=== PATIENT | female | born 1960 | race Caucasian/White ===

== ENCOUNTER → 2016-11-28 | Outpatient (CLI) | payer MEDICARE, BC ==
--- NOTE | 2016-11-28 15:52 | US ---
EXAMINATION TYPE: US bladder DATE OF EXAM: 11/28/2016 COMPARISON: NONE CLINICAL HISTORY: R33.9 Retention Of Urine. Urinary frequency, retention of urine EXAM MEASUREMENTS: Post Void Residual Volume: 34.5 mL The prevoid urinary bladder has circumferentially smooth non thickened smith. Color Doppler performed to assess ureteral jets. Bilateral Jets seen: Yes Normal Post Void Residual (less than 50ml): Yes, 34.5 mm IMPRESSION: Unremarkable sonographic appearance of the urinary bladder with no abnormal post void re sidual.
== END | disposition home or self-care (01) ==
LOC: RADUSWWP 15:19
PROVIDERS: ATTEND Internal Medicine
DX: R33.9 Retention of urine, unspecified (principal)
CPT/HCPCS: 76857

== ENCOUNTER → 2017-05-03 | Outpatient (CLI) | payer MEDICARE, BC ==
--- NOTE | 2017-05-03 11:17 | US ---
EXAMINATION TYPE: US thyroid st tissue head/neck DATE OF EXAM: 05/03/2017 COMPARISON: NONE CLINICAL HISTORY: E05.90 Subclinical hyperthyroidism. Abn labs GLAND SIZE: Right Lobe: 4.5 x 1.5 x 1.2 cm Overall Parenchyma: heterogenous Left Lobe: 3.9 x 1.6 x 1.4 cm Overall Parenchyma: heterogeneous Isthmus Thickness: 0.2 cm NODULES RIGHT: # of nodules measured on right: 0 LEFT: # of nodules measured on left: 0 ISTHMUS: # of nodules measured in the isthmus: 0 Bilateral neck scanned, no evidence of lymphadenopathy. No prominent nodules or lesions seen. IMPRESSION: No evidence of thyroid gland enlargement, hypervascularity or discrete thyroid nodule. Unremarkable e xam.
--- NOTE | 2017-05-04 10:04 | NM ---
EXAMINATION TYPE: NM thyroid image w uptake DATE OF EXAM: 05/04/2017 COMPARISON: Ultrasound 05/03/2017 HISTORY: 57-year-old female with thyroid swelling, heat intolerance, increased weight, extreme fatigu e, tremors. Subclinical hyperthyroidism. TECHNIQUE: Thyroid iodine uptake is calculated and images performed after the oral administration of 332 uCi 1-123 Capsule. FINDINGS: There is normal distribution of activity throughout the gland. The 4 hour iodine uptake is calculated at 5.1% (normal range 8-14%). The 24-hour iodine uptake is calculated at 13.3% (normal range 15-35%). IMPRESSION: 1. Normal thyroid scan. 2. Uptake measurements are low suggesting some degree of hypothyroidism at this time. Clinical and la boratory correlation recommended.
== END ==
LOC: RADUSMAIN 08:00
PROVIDERS: ATTEND Internal Medicine Endocrinology, Diabetes & Metabolism
DX: E05.90 Thyrotoxicosis, unspecified without thyrotoxic crisis or storm (principal)
CPT/HCPCS: 76536; 78014; A9516

== ENCOUNTER → 2017-05-12 | Outpatient (CLI) | payer MEDICARE, BC ==
[2017-05-12 16:07] LABS: T4, Free (Free Thyroxine) 0.9 ng/dL (0.78-2.19)
== END | disposition home or self-care (01) ==
LOC: LABWHC1 14:19
PROVIDERS: ATTEND Internal Medicine Endocrinology, Diabetes & Metabolism
DX: E05.90 Thyrotoxicosis, unspecified without thyrotoxic crisis or storm (principal)
CPT/HCPCS: 36415; 84439; 84443; 84445; 84480

== ENCOUNTER → 2017-11-14 | Outpatient (CLI) | payer MEDICARE, BC ==
[2017-11-14 18:13] LABS: T4, Free (Free Thyroxine) 0.86 ng/dL (0.78-2.19)
[2017-11-15 00:58] LABS: Thyroid Peroxidase Antibodies 101.9 U/mL (0.0-60.0)
== END | disposition home or self-care (01) ==
LOC: LABWHC1 17:03
PROVIDERS: ATTEND Internal Medicine Endocrinology, Diabetes & Metabolism
DX: E05.90 Thyrotoxicosis, unspecified without thyrotoxic crisis or storm (principal)
CPT/HCPCS: 36415; 84439; 84443; 84445; 84480; 86376

== ENCOUNTER → 2017-11-21 | Outpatient (CLI) | payer MEDICARE, BC ==
--- NOTE | 2017-11-22 09:24 | MM ---
Reason for exam: clinical finding. Last mammogram was performed 2 years and 2 months ago. History: Patient is postmenopausal. Family history of breast cancer in sister at age 52, breast cancer in cousin, and breast cancer in sister at age 58. Indicated problem(s): pain in both breasts. Physical Findings: Nurse did not find any significant physical abnormalities on exam. MG 3D Diag Mammo W/Cad WILLIAM Bilateral CC and MLO view(s) were taken. Prior study comparison: September 18, 2015, bilateral MG 3d screening mammo w/cad. February 26, 2014, bilateral MG screening mammo w CAD. Finding: There is a probably benign appearing equal, spiculated, architectural distortion located 7 cm from the nipple in the upper quadrant, middle position of the left breast on MLO view, not on tomosynthesis images, likely summation. New finding since September 18, 2015 and February 26, 2014. These results were verbally communicated with the patient and result sheet given to the patient on 11/21/17. ASSESSMENT: Probably benign, BI-RAD 3 RECOMMENDATION: Follow-up diagnostic mammogram of the left breast in 6 months. If lesion persists on supplemental views, image directed ultrasound is recommended. [facility] will attempt to contact patient to return for supplemental views and ultrasound if indicated.
== END | disposition home or self-care (01) ==
LOC: RADMAMWWP 12:58
PROVIDERS: ATTEND Internal Medicine
DX: N63.22 Unspecified lump in the left breast, upper inner quadrant (principal)
CPT/HCPCS: 77066; G0279; 77062

== ENCOUNTER → 2017-11-30 | Outpatient (CLI) | payer MEDICARE, BC ==
[2017-11-30 15:03] LABS: T4, Free (Free Thyroxine) 0.84 ng/dL (0.78-2.19)
[2017-11-30 20:43] LABS: ACTH 25.6 pg/mL (0.00-45.99)
== END | disposition home or self-care (01) ==
LOC: LABWHC1 14:16
PROVIDERS: ATTEND Internal Medicine Endocrinology, Diabetes & Metabolism
DX: E06.3 Autoimmune thyroiditis (principal); R53.83 Other fatigue
CPT/HCPCS: 36415; 82024; 82533; 84146; 84439; 84443

== ENCOUNTER → 2018-01-19 | Outpatient (CLI) | payer MEDICARE, BC ==
[2018-01-19 09:39] VITALS: BMI 31.4
--- NOTE | 2018-01-19 10:34 | P.GSHP ---
History of Present Illness H&P Date: 01/19/18 The patient is a 57-year-old white female who presents today for breast evaluation. She has a history of chronic breast discomfort. The discomfort is described as soreness on the lateral breast and chest wall including the ribs. This has been persistent for several years. She is postmenopausal. There is no cyclic nature to the discomfort. She does have a strong history of cancer in her family. She is concerned and wants to be sure that she doesn't need to do anything more for breast surveillance than what she is currently doing. She did have a bilateral 3-D breast mammogram in November 2017. The findings on this revealed a benign appearing equal speculated architectural distortion 7 cm from the nipple in the upper quadrant middle position of the left breast MLO view not until most synthesis images felt to be summation. This was felt to be probably benign and follow-up left breast mammogram in 6 months was recommended. She herself does not feel any discrete masses in her breasts. She has no history of breast trauma or infections. No nipple discharge of concern. The patient drinks minimal coffee or tea. She only has 1-2 cups per month. She is a former smoker she stopped smoking in 2000. She does not drink pop, she eats chocolate several times a week. Family History: 1. father: from lung cancer a smoker 2. mother: cerebral bleed 3. 2 sisters with breast cancer: one in 40's and one in 50's 4. grandmother maternal: parotid cancer 5. paternal aunt: colon cancer 6. second cousin in twenties breast cancer Hormonal History: menarche: 15 : 1, at 29, 1 child, breast fed: no menopause: 49 BCP: 5 years hormones: none Past Surgical History: 1. 2. gallbladder 3. C4 to C6 corpectomy The operation was done secondary to an injury lifting a patient, following the procedure postoperative she had shortness of breath and severe pain in the head and neck area. She is felt to have shortness of breath due to her muscles and not her lungs, as per pulmonary consultation as per the patient, she is oxygen dependent. She also has central apnea. Past Medical History: 1. Suppressive causing oxygen dependence believed to be secondary to chest wall muscles as well as some possible central apnea 2. Cervical thoracic and lumbar degenerative disc disease 3. arthritis 4. high cholesterol 5. Hoshimotos disease 6. urinary incontinence Social History smoke:1 ppd/20 years stopped 2000 Alcohol: Negative Drugs: Negative - Constitutional Comment: night sweats - EENT Comment: headaches every day patient is on [place], and morphine Eyes: bilateral blurred vision, denies pain Ears: bilateral: decreased hearing, tinnitus Ears, nose, mouth and throat: Reports headache, Denies sore throat - Breasts Breasts: bilateral: as per HPI - Cardiovascular Cardiovascular: Reports chest pain, Reports high blood pressure, Reports shortness of breath - Respiratory Respiratory: Reports home oxygen - Gastrointestinal Gastrointestinal: Reports constipation - Genitourinary (Female) Genitourinary: Reports stress incontinence, Reports urge incontinence, Reports urgency - Menstruation Menstruation: Reports postmenopausal - Musculoskeletal Comment: Multiple degenerative disks Musculoskeletal: Reports as per HPI - Integumentary Integumentary: Reports pruritus, Denies rash - Neurological Comment: numbess in hands and feet and on the right side of her body weakness in her arms Neurological: Reports numbness, Reports weakness - Psychiatric Psychiatric: Reports depression - Endocrine Comment: hypothyroidism Endocrine: Reports fatigue, Reports weight change - Hematologic/Lymphatic Comment: none - Allergic/Immunologic Allergic/Immunologic: Reports as per HPI, Reports seasonal allergies Past Medical History Past Medical History: No Reported History, GERD/Reflux, Hyperlipidemia, Hypertension, Musculoskeletal Disorder Additional Past Medical History / Comment(s): Cervical disc disease status post C4-C5 and C5-C6 corpectomy decompression and fusion that was done [address] Rodriges. Central sleep apnea on Servo ventilation History of Any Multi-Drug Resistant Organisms: None Reported Past Surgical History: Section, Cholecystectomy Additional Past Surgical History / Comment(s): Cervical decompression/ stabilization. cor pectomy c4-c6 with donor bone plates and screws Past Anesthesia/Blood Transfusion Reactions: No Reported Reaction Past Psychological History: No Psychological Hx Reported Smoking Status: Former smoker Past Alcohol Use History: None Reported Additional Past Alcohol Use History / Comment(s): Patient was smoker half a pack per day and quit in 2000. She denies any alcohol use. She denies any medical marijuana, marijuana, street drug use. Past Drug Use History: None Reported - Past Family History Father Additional Family Medical History / Comment(s): Father at age 60 from lung cancer. Mother Additional Family Medical History / Comment(s): Mother at age 66 from cerebral aneurysm. Sister(s) Family Medical History: Cancer Additional Family Medical History / Comment(s): Patient has 2 sisters and one has had breast cancer and one has had peritoneal cancer at age 14. She has one brother with no major medical problems. Patient has one daughter with no major medical problems. Medications and Allergies Home Medications Medication Instructions Recorded Confirmed Type Gabapentin [Neurontin] 800 mg PO TID 04/07/14 01/19/18 History Hydrocodone/Acetaminophen [[place] 1 tab PO BID PRN 04/07/14 01/19/18 History 10-325] Armodafinil [Nuvigil] 150 mg PO QAM 08/09/15 01/19/18 History Cholecalciferol [Vitamin D3] 5,000 unit PO DAILY 08/09/15 01/19/18 History Morphine Sulfate ER [Ms Contin] 30 mg PO HS 08/09/15 01/19/18 History Verapamil HCl [Verapamil ER] 180 mg PO HS 09/10/15 01/19/18 History Ferrous Sulfate [Iron (65 MG 65 mg PO DAILY 10/22/15 01/19/18 History Elemental)] Venlafaxine HCl ER [Effexor XR] 150 mg PO HS #30 cap.er.24h 11/06/15 01/19/18 Rx Sucralfate [Carafate] 1 tab PO DAILY 01/19/18 01/19/18 History Allergies Allergy/AdvReac Type Severity Reaction Status Date / Time alprazolam [From Xanax] Allergy INSOMNIA Verified 10/22/15 21:21 hydromorphone HCl Allergy Nausea Verified 10/22/15 21:21 [From Dilaudid] sumatriptan [From Imitrex] Allergy Chest Pain Verified 10/22/15 21:21 sumatriptan succinate Allergy Chest Pain Verified 10/22/15 21:21 [From Imitrex] tapentadol HCl [From Nucynta] Allergy Chest Pain Verified 10/22/15 21:21 atenolol AdvReac Unknown Verified 10/22/15 21:21 Surgical - Exam BMI 31.5 The pressure 119/85 Pulse ox 96 Pulse 96 temp: 98.5 - General obese - Eyes normal ocular movement right: erythema - ENT no hearing loss, no congestion - Neck no masses, trachea midline - Respiratory patient on oxygen, on a auto-servo ventilator at night normal respiratory effort, clear to auscultation - Cardiovascular Rhythm: regular Heart Sounds: normal: S1, S2 - Abdomen Abdomen: soft - Integumentary no abnormal pigmentation - Neurologic no disoriented, no combative - Musculoskeletal normal gait, normal posture - Psychiatric oriented to time, oriented to person, oriented to place, speech is normal, memory intact Breast exam: right: multi-positional exam no dominant masses or nodules of concern, dense breast tissue, right breast is slightly smaller than the left breast, nipple is inverted It has been like this for a long period of time as per the patient Right axilla: No adenopathy of concern Left breast: Left breast is slightly larger than the right breast, dense breast tissue, fibrocystic changes, no dominant mass or nodule of concern, nipple is slightly inverted which is more recent as per the patient Left axilla: No adenopathy of concern Results Bilateral 3-D mammogram from November 2017 report reviewed Assessment and Plan Assessment: Impression: 1. Strong family history of breast cancer 2. Mastodynia 3. Dense breast tissue abnormal mammogram left breast 4. Multiple medical problems related to degenerative disc disease 5. Oxygen dependence etiology may be central apnea as well as chest wall weakness 6. Former smoker 7. Urinary incontinence 8. Headaches 9. Arthritis 10. 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 Genetic counseling secondary to strong family history of cancer 2. Ultrasound left breast with attention to the upper outer quadrant area with the tissue is very dense 3. Abstain from theophylline caffeine and any exposure to nicotine we have discussed possibility of primrose oil and she'll be given a booklet regarding breast pain 4. Medical management of medical problems 5. follow up after the ultra sound is completed 6. We will attempt to get bilateral breast MRI secondary to very dense breast tissue as well as strong family history We've had a discussion regarding fibrocystic breast changes and the patient is going to try to stay way from chocolate at this time she is being given a booklet regarding breast pain as well. cc: Dr. Gomes
== END | disposition home or self-care (01) ==
LOC: WWCWWP 09:12
PROVIDERS: ATTEND Surgery
DX: Z53.9 Procedure and treatment not carried out, unspecified reason (principal)

== ENCOUNTER → 2018-02-23 | Outpatient (CLI) | payer MEDICARE, BC ==
--- NOTE | 2018-02-26 13:11 | USB ---
Reason for exam: clinical finding. History: Patient is postmenopausal. Family history of breast cancer in sister at age 52, breast cancer in cousin, and breast cancer in sister at age 58. Physical Findings: Nurse Summary: Patient complains of bilateral breast pain x 1 year, left breast nipple inverted (nurse mj). US Breast LT Left complete breast ultrasound includes all four quadrants, the retroareolar region and axilla. Finding demonstrates no cystic or solid lesion seen. These results were verbally communicated with the patient and result sheet given to the patient on 02/23/18. ASSESSMENT: Negative, BI-RAD 1 RECOMMENDATION: Follow-up diagnostic mammogram of the left breast in 3 months. Manage on a clinical basis with regard to patient reported pain.
== END ==
LOC: RADUSWWP 14:51
PROVIDERS: ATTEND Surgery
DX: R92.8 Other abnormal and inconclusive findings on diagnostic imaging of breast (principal)

== ENCOUNTER → 2018-03-23 | Outpatient (CLI) | payer MEDICARE, BC ==
[2018-03-23 14:02] VITALS: BP 116/64; PULSE 90; RESP 18; TEMP 98.2; BMI 31.4
--- NOTE | 2018-03-23 14:44 | P.PN ---
Subjective Progress Note Date: 03/23/18 Principal diagnosis: Strong family history of breast cancer Joy is a 58-year-old white female who has a very strong family history of breast cancer. She had 2 sisters with breast cancer and a second cousin who developed breast cancer in her 20s. The patient had a bilateral mammogram in November after which it was recommended that she have a repeat left breast mammogram in 6 months time. Joy wanted to be sure that everything was being done for surveillance that was necessary. She has not yet seen a genetic counselor although that was suggested and she states that this time that she is making arrangements to do so. She did have an ultrasound of the left breast performed on . This revealed no cystic or solid lesions of concern. This was felt to be a negative BIRADS 1 diagnostic mammogram of the left breast in 3 months was recommended. Additionally she had a bilateral breast MRI performed on 1119. This revealed negative study of the right breast and negative study of the left breast. The patient has decreased her caffeine and chocolate intake. She states her breasts are less tender at this time. She has no complaints of any new masses or lesions in her breast. Objective - Vital Signs Vital signs: Vital Signs Temp 98.2 F 03/23/18 13:50 Pulse 90 03/23/18 13:50 Resp 18 03/23/18 13:50 BP 116/64 03/23/18 13:50 Pulse Ox 96 03/23/18 13:50 Intake & Output 03/22/18 03/23/18 03/23/18 18:59 06:59 18:59 Weight 78.018 kg - Exam BMI 31.5 - Constitutional General appearance: Present: average body habitus - EENT Eyes: Present: EOMI ENT: Present: hearing grossly normal - Neck Neck: Present: normal ROM - Respiratory Details: Oxygen dependent secondary to central apnea and muscles of the chest wall - Cardiovascular Rhythm: regular Heart sounds: normal: S1, S2 - Gastrointestinal General gastrointestinal: Present: soft - Integumentary Integumentary: Present: normal turgor - Musculoskeletal Musculoskeletal: Present: gait normal - Psychiatric Psychiatric: Present: A&O x's 3, appropriate affect, intact judgment & insight Assessment and Plan Assessment: Impression: 1. stable MRI of bilateral breast 2. left breast mammogram in 2018 3. central apnea/O2 dependance 4. neurogenic bladder 5. back pain/herniated disc 6. family history of cancer Plan: 1. left breast mammogram in 2018 with follow up at that time 2. medical management of medical conditions 3. genetic counselling cc: Mireya
== END ==
LOC: WWCWWP 13:45
PROVIDERS: ATTEND Surgery
DX: Z53.9 Procedure and treatment not carried out, unspecified reason (principal)

== ENCOUNTER → 2018-04-12 | Outpatient (CLI) | payer MEDICARE, BC ==
[2018-04-13 03:23] LABS: T4, Free (Free Thyroxine) 1.2 ng/dL (0.80-1.80)
== END ==
LOC: LABWHC1 17:04
PROVIDERS: ATTEND Internal Medicine Endocrinology, Diabetes & Metabolism
DX: E06.3 Autoimmune thyroiditis (principal)
CPT/HCPCS: 36415; 84439; 84443

== ENCOUNTER → 2018-06-11 | Outpatient (CLI) | payer MEDICARE, BC ==
--- NOTE | 2018-06-11 09:40 | MM ---
Reason for exam: follow-up at short interval from prior study. Last mammogram was performed 7 months ago. History: Patient is postmenopausal. Family history of breast cancer in sister at age 49, breast cancer in paternal cousin at age 21, and breast cancer in sister at age 60. Physical Findings: Nurse did not find any significant physical abnormalities on exam. MG 3D Diag Mammo W/Cad LT CC, MLO, and ML view(s) were taken of the left breast. Prior study comparison: November 21, 2017, bilateral MG 3d diag mammo w/cad WILLIAM. September 18, 2015, bilateral MG 3d screening mammo w/cad. The breast tissue is heterogeneously dense. This may lower the sensitivity of mammography. No significant new findings when compared with previous films. These results were verbally communicated with the patient and result sheet given to the patient on 06/11/18. ASSESSMENT: Benign, BI-RAD 2 RECOMMENDATION: Routine screening mammogram of both breasts in 6 months. Back on schedule.
== END | disposition home or self-care (01) ==
LOC: RADMAMWWP 08:40
PROVIDERS: ATTEND Surgery
DX: R92.8 Other abnormal and inconclusive findings on diagnostic imaging of breast (principal)
CPT/HCPCS: 77065; G0279; 77061

== ENCOUNTER → 2018-06-14 | Outpatient (CLI) | payer MEDICARE, BC ==
[2018-06-14 09:52] VITALS: BP 121/67; PULSE 88; RESP 18; TEMP 98.2; BMI 31.4
--- NOTE | 2018-06-14 10:28 | P.PN ---
Subjective Progress Note Date: 06/14/18 Principal diagnosis: Breasts pain, follow-up on abnormal left breast mammogram Joy is a 58-year-old white female who was initially seen for breast pain. She has a history of chronic breast discomfort. The discomfort was described as soreness in the lateral breast and chest wall including the ribs. It had been persistent for several years. She is postmenopausal. There was no cyclic nature to the discomfort. She drinks minimal coffee or tea. She is a former smoker and stopped in 2000, she does not drink pop. She has cut back on chocolate intake which used to be several times a week. The patient since being seen last has had a repeat left breast mammogram which was felt to be benign BIRADS 2. This was performed on 220 519. The patient's since her last visit has begun multiple natural supplements as well as red light to her breast and has marked improvement in the discomfort in her breast. Family history: 1. Father: from lung cancer he was a smoker 2. Mother: Cerebral bleed 3. 2 sisters with breast cancer on in their 40s and one in their 50s 4. Grandmother maternal: Parotid cancer 5. Paternal aunt: Colon cancer 6. Second cousin in her 20s with breast cancer 7. Sister with cancer of the peritoneal lining, she is Hormonal history: Menarche: 15 Pregnancies: 1 at 29, 1 child, did not breast-feed Menopause: 49 control pills: 5 years Hormones: Negative Past surgical history: 1. 2. Cholecystectomy 3. C4 to C6 corpectomy The operation was done secondary to an injury lifting the patient, following the procedure postoperatively the patient has had shortness of breath and severe pain in the head and neck area. She is felt to have shortness of breath due to her muscles and not her lungs as per pulmonary consultation. She is oxygen dependent. She also has central apnea Medical history: Oxygen dependence believed to be secondary to chest wall muscles as well as some possible central apnea 2. Cervical thoracic and lumbar degenerative disc disease 3. Arthritis 4. High cholesterol 5. Ruby's disease 6. Urinary incontinence, neurogenic bladder 7. Patient is on auto-servo vent at night Social history: Smoke: One pack per day for 20 years, stopped smoking in 2000 Alcohol: Negative Drugs: Negative Review of systems: Headaches every day patient is on [place] and morphine HEENT: Blurred vision bilateral Decreased hearing Headaches as stated Breasts: As per HPI Cardiovascular: Reports chest pain, hypertension, shortness of breath Respiratory: Dependent on home oxygen, central apnea GI: Constipation : Stress incontinence, neurogenic bladder Musculoskeletal: Multiple degenerative disc disease Integument: Reports pruritus denies rashes Neurologic: Numbness in hands and feet on the right side of her body weakness in her arms Psychiatric: Depression Endocrine: Hypothyroidism Hematologic: Negative ALLERGIC: Seasonal ALLERGIES Objective - Vital Signs Vital signs: Vital Signs Temp 98.2 F 06/14/18 09:48 Pulse 88 06/14/18 09:48 Resp 18 06/14/18 09:48 BP 121/67 06/14/18 09:48 Pulse Ox 95 06/14/18 09:48 Intake & Output 06/13/18 06/14/18 06/14/18 18:59 06:59 18:59 Weight 78.018 kg - Exam BMI 31.5 - Constitutional General appearance: Present: obese - EENT Eyes: Present: EOMI ENT: Present: hearing grossly normal - Respiratory Details: oxygen dependant Respiratory: bilateral: CTA (decreased breath sounds at bases) - Cardiovascular Rhythm: regular Heart sounds: normal: S1, S2 - Gastrointestinal Gastrointestinal Comment(s): no guarding or rebound General gastrointestinal: Present: soft - Integumentary Integumentary: Present: normal turgor - Musculoskeletal Musculoskeletal: Present: gait normal - Psychiatric Psychiatric: Present: A&O x's 3, appropriate affect, intact judgment & insight - Additional findings Additional findings: Breast examination: Right breast: Multi-positional exam no dominant masses or nodules of concern, nipple chronic mild inversion Right axilla: No adenopathy of concern Left breast: Multi-positional exam no dominant masses or nodules of concern, nipple chronic mild inversion Left axilla: No adenopathy of concern Assessment and Plan Assessment: Mammogram report reviewed 06-11-18 Impression: 1. Mastodynia improved 2. Fibrocystic breast changes 3. Chronically inverted nipples bilateral mild 4. Family history of cancer 6. High risk for breast cancer, Corrina model evaluation done in the past and lifetime risk 23.7%, 5 year risk 2.7% 7. Oxygen dependence etiology may be central apnea as well as chest wall weakness 8. Former nicotine dependence 9. Urinary incontinence 10. Headaches 11. Hypertension 12. Ruby's thyroiditis 13. Degenerative disc disease 14. No evidence of breast cancer at this time Plan: 1. Continue present natural therapy which has been reduced mastodynia 2. Repeat bilateral mammogram in 6 months time 3. Patient is considering genetic counseling secondary to strong family history of cancer, we do not know BRCA1 analysis on any of her family members at this time 4. Oxygen dependence which is being followed by pulmonary 5. Medical management of medical conditions 6. Follow-up here in 6 months time Cc: Dr. Gomes, Dr. Mak
== END | disposition home or self-care (01) ==
LOC: WWCWWP 09:37
PROVIDERS: ATTEND Surgery
DX: Z53.9 Procedure and treatment not carried out, unspecified reason (principal)

== ENCOUNTER → 2018-10-26 | Outpatient (CLI) | payer MEDICARE, BC ==
[2018-10-26 17:12] LABS: Basophils % (A) 1 %; Eosinophils # (A) 0.1 k/uL (0-0.7); Eosinophils % (A) 2 %; HCT 40.4 % (34.0-46.0); HGB 12.5 gm/dL (11.4-16.0); Lymphocytes # (A) 2.1 k/uL (1.0-4.8); Lymphocytes % (A) 30 %; MCH 27.1 pg (25.0-35.0); MCHC 30.9 g/dL (31.0-37.0); MCV 87.7 fL (80.0-100.0); Mean Platelet Volume 6.8; Monocytes # (A) 0.3 k/uL (0-1.0); Monocytes % (A) 4 %; Neutrophils # (A) 4.2 k/uL (1.3-7.7); Neutrophils % (A) 61 %; Platelet Count 283 k/uL (150-450); RDW 13.5 % (11.5-15.5); WBC 6.9 k/uL (3.8-10.6)
[2018-10-26 21:17] LABS: Erythrocyte Sedimentation Rate 16 mm/hr (0-20)
[2018-10-26 23:17] LABS: African American GFR (CKD) 82.8 (60.0-200.0); Albumin 4.5 g/dL (3.80-4.90); Albumin/Globulin Ratio 1.96 (1.60-3.17); Anion Gap 8.8 mmol/L (4.00-12.00); Calcium 9.6 mg/dL (8.7-10.3); Carbon Dioxide 27.2 mmol/L (21.6-31.8); Globulin 2.3 g/dL (1.6-3.3); LDL Cholesterol,Calculated 133.2 mg/dL (0.0-131.0); Potassium 3.5 mmol/L (3.5-5.5); Total Bilirubin 0.5 mg/dL (0.3-1.2); Total Protein 6.8 g/dL (6.2-8.2); VLDL Calculation 60.8 mg/dL (5.00-40.00)
[2018-10-26 23:43] LABS: Cyclic Citrull Pep IgG Unit 0.5 U/mL; Cyclic Citrullinated Pep IgG NEGATIVE (NEGATIVE)
== END | disposition home or self-care (01) ==
LOC: LABWHC1 16:28
PROVIDERS: ATTEND Internal Medicine Endocrinology, Diabetes & Metabolism
DX: E06.3 Autoimmune thyroiditis (principal); R53.83 Other fatigue; E03.9 Hypothyroidism, unspecified; E78.5 Hyperlipidemia, unspecified
CPT/HCPCS: 36415; 80053; 80061; 82024; 82533; 84439; 84443; 84480; 84481; 85025; 85652; 86038; 86200

== ENCOUNTER → 2018-12-05 | Outpatient (CLI) | payer MEDICARE, BC ==
--- NOTE | 2018-12-06 11:32 | MM ---
Reason for exam: screening (asymptomatic). Last mammogram was performed 6 months ago. History: Patient is postmenopausal. Family history of breast cancer in sister at age 49, breast cancer in paternal cousin at age 21, and breast cancer in sister at age 60. Physical Findings: A clinical breast exam by your physician is recommended on an annual basis and results should be correlated with mammographic findings. MG 3D Screening Mammo W/Cad Bilateral CC and MLO view(s) were taken. XCCL view(s) were taken of the right breast. Prior study comparison: June 11, 2018, left breast MG 3d diag mammo w/cad LT. November 21, 2017, bilateral MG 3d diag mammo w/cad WILLIAM. The breast tissue is heterogeneously dense. This may lower the sensitivity of mammography. Asymmetric breast tissue in the left upper breast, stable. There is no discrete abnormality. ASSESSMENT: Negative, BI-RAD 1 RECOMMENDATION: Routine screening mammogram of both breasts in 1 year.
== END | disposition home or self-care (01) ==
LOC: RADMAMWWP 07:51
PROVIDERS: ATTEND Surgery
DX: Z12.31 Encounter for screening mammogram for malignant neoplasm of breast (principal); Z80.3 Family history of malignant neoplasm of breast
CPT/HCPCS: 77063; 77067

== ENCOUNTER → 2018-12-14 | Outpatient (CLI) | payer MEDICARE, BC ==
[2018-12-14 12:19] VITALS: BP 123/77; PULSE 101; RESP 18; TEMP 98.7; BMI 32.0
--- NOTE | 2018-12-14 12:36 | P.PN ---
Subjective Progress Note Date: 12/14/18 Breasts pain improved Joy is a 58-year-old white female who was initially seen for breast pain. She has a history of chronic breast discomfort. The discomfort was described as soreness in the lateral breast and chest wall including the ribs. It had been persistent for several years. She is postmenopausal. There was no cyclic nature to the discomfort. She drinks minimal coffee or tea. She is a former smoker and stopped in 2000, she does not drink pop. She has cut back on chocolate intake which used to be several times a week. The patient's since her last visit has begun multiple natural supplements as well as red light to her breast and has marked improvement in the discomfort in her breast. Her latest bilateral mammogram was 12/05/2018. This was a benign BIRADS 1. The patient does describe some new soreness in the bilateral periareolar area. There appears to be some nodularity in this region to her superficially. There are no large masses or lumps. She has no history of any recent trauma or infection in her breast. Family history: 1. Father: from lung cancer he was a smoker 2. Mother: Cerebral bleed 3. 2 sisters with breast cancer one in their 40s and one in their 50s 4. Grandmother maternal: Parotid cancer 5. Paternal aunt: Colon cancer 6. Second cousin in her 20s with breast cancer 7. Sister with cancer of the peritoneal lining, she is 8. neice: stage 4 glioblastoma at 24 Hormonal history: Menarche: 15 Pregnancies: 1 at 29, 1 child, did not breast-feed Menopause: 49 control pills: 5 years Hormones: Negative Past surgical history: 1. 2. Cholecystectomy 3. C4 to C6 corpectomy The operation was done secondary to an injury lifting the patient, following the procedure postoperatively the patient has had shortness of breath and severe pain in the head and neck area. She is felt to have shortness of breath due to her muscles and not her lungs as per pulmonary consultation. She is oxygen dependent. She also has central apnea Medical history: 1. Oxygen dependence believed to be secondary to chest wall muscles as well as some possible central apnea 2. Cervical thoracic and lumbar degenerative disc disease 3. Arthritis 4. High cholesterol 5. Ruby's disease 6. Urinary incontinence, neurogenic bladder 7. Patient is on auto-servo vent at night Social history: Smoke: One pack per day for 20 years, stopped smoking in 2000 Alcohol: Negative Drugs: Negative Review of systems: Headaches every day patient is on [place] and morphine HEENT: Blurred vision bilateral Decreased hearing Headaches as stated Breasts: As per HPI Cardiovascular: Reports chest pain, hypertension, shortness of breath Respiratory: Dependent on home oxygen, central apnea GI: Constipation : Stress incontinence, neurogenic bladder Musculoskeletal: Multiple degenerative disc disease Integument: Reports pruritus denies rashes Neurologic: Numbness in hands and feet on the right side of her body weakness in her arms Psychiatric: Depression Endocrine: Hypothyroidism Hematologic: Negative ALLERGIC: Seasonal ALLERGIES Objective - Vital Signs Vital signs: Intake & Output 12/13/18 12/14/18 12/14/18 18:59 06:59 18:59 Weight 79.379 kg - Exam BMI 32 - Constitutional General appearance: Present: obese - EENT Eyes: Present: EOMI ENT: Present: hearing grossly normal - Neck Neck: Present: normal ROM - Respiratory Details: decreased breath sounds at the bases - Cardiovascular Rhythm: regular Heart sounds: normal: S1, S2 - Gastrointestinal Gastrointestinal Comment(s): no guarding or rebound General gastrointestinal: Present: soft - Integumentary Integumentary: Present: normal turgor - Musculoskeletal Musculoskeletal: Present: gait normal - Psychiatric Psychiatric: Present: A&O x's 3, appropriate affect, intact judgment & insight - Additional findings Additional findings: breast exam: Right breast: Multi-positional exam fibrocystic changes, no dominant masses or nodules of concern Right axilla: No adenopathy of concern Left breast: Multiple positional exam no dominant mass or nodule is of concern Left axilla: No adenopathy of concern Assessment and Plan Assessment: Impression: 1. Strong family history of breast cancer 2. Mastodynia improved 3. BIRADS 1 bilateral mammogram 4. Multiple medical problems related to degenerative disc disease 5. Oxygen dependence etiology may be central apnea as well as chest wall weakness 6. Former smoker 7. Urinary incontinence 8. Headaches 9. Arthritis 10. 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 Genetic counseling 2. Bilateral mammogram in 1 year, with appointment at that time 3. Continue to abstain from theophylline, caffeine, and any exposure to nicotine 3. Patient's using natural supplements which seems to have improved the mastodynia CC: Rodriguez Gomes
== END ==
LOC: WWCWWP 11:47
PROVIDERS: ATTEND Surgery
DX: Z53.9 Procedure and treatment not carried out, unspecified reason (principal)

== ENCOUNTER → 2019-04-20 | Outpatient (CLI) | payer MEDICARE, BC ==
--- NOTE | 2019-04-20 15:30 | MR ---
EXAMINATION TYPE: MR brain wo con DATE OF EXAM: 04/20/2019 COMPARISON: 10/28/2015 HISTORY: 59-year-old female Paresthesia of skin, mental status change TECHNIQUE: Multiplanar, multisequence images of the brain and brainstem were obtained without IV con trast. Diffusion weighted imaging is performed. FINDINGS: No evidence for acute infarction, hemorrhage, mass, mass effect, midline shift, herniation, effacemen t of basal cisterns, or extra-axial fluid collection. The ventricles and sulci are age-appropriate. Major intracranial flow voids are intact. T2/FLAIR weighted sequences show mild scattered right white matter foci within the subcortical and de ep white matter regions of both cerebral hemispheres, approximately 7 in the left cerebral hemisphere and 5 in the right cerebral hemisphere. Foci of greatest in the frontal lobes. Midline structures demonstrate normal morphology. The craniocervical junction is normal. Post contrast images demonstrate no evidence of pathologic enhancement. Dural venous sinuses are pat ent. Small mucosal retention cyst left maxillary sinus and mild mucosal thickening anterior right maxillar y sinus. Globes appear intact. IMPRESSION: 1. No acute intracranial abnormality seen. 2. Chronic T2 bright white matter change with minimal to mild overall burden, greatest in the frontal lobes, unchanged from 2016. Chronic small vessel ischemic disease and chronic migraines are in the d ifferential.
== END | disposition home or self-care (01) ==
LOC: RADMRIMAIN 11:35
PROVIDERS: ATTEND Internal Medicine
DX: R90.89 Other abnormal findings on diagnostic imaging of central nervous system (principal); I67.82 Cerebral ischemia; G43.909 Migraine, unspecified, not intractable, without status migrainosus
CPT/HCPCS: 70551

== ENCOUNTER → 2019-11-22 | Outpatient (CLI) | payer MEDICARE, BC ==
[2019-11-22 14:37] LABS: ABG HCO3 25 mmol/L (21-25); ABG Oxygen Saturation 92.5 % (94-97); ABG PCO2 46 mmHg (35-45); ABG PH 7.34 (7.35-7.45); ABG PO2 62 mmHg (83-108); ABG TCO2 26 mmol/L (19-24); Allen Test Performed? Yes
[2019-11-22 19:00] LABS: ALT 50 U/L (8-44); AST 42 U/L (13-35); Alkaline Phosphatase 98 U/L (41-126); Bilirubin, Conjugated <0.20 mg/dL (0.20-0.40); Globulin 2.2 g/dL (1.6-3.3); Total Bilirubin 0.5 mg/dL (0.3-1.2); Total Protein 6.6 g/dL (6.2-8.2)
== END | disposition home or self-care (01) ==
LOC: LABWHC1 13:52
PROVIDERS: ATTEND Internal Medicine Critical Care Medicine
DX: R74.8 Abnormal levels of other serum enzymes (principal); E66.2 Morbid (severe) obesity with alveolar hypoventilation
CPT/HCPCS: 36415; 36600; 80076; 82805

== ENCOUNTER → 2019-12-05 | Outpatient (CLI) | payer MEDICARE, BC ==
--- NOTE | 2019-12-06 00:20 | CT ---
EXAMINATION TYPE: CT chest wo con DATE OF EXAM: 12/05/2019 COMPARISON: CTA chest 11/03/2014 HISTORY: Respiratory failure with hypoxia. CT DLP: 607.5 mGycm, Automated exposure control for dose reduction was used. CONTRAST: None TECHNIQUE: Axial images were obtained at 1 mm thick sections at 10 mm intervals. This will limit po rtions of the examination which may not be visualized within the [id number]. Images were obtained in the prone and supine views. FINDINGS: Portion of the thyroid visualized is normal. There is some mild thickening within the right apex. This may be slightly greater than 2014. There is some ill-defined infiltrate through the lingula. Atelectasis is likely present. This appears to change between prone and supine views. There is some underlying density measuring 0.5 cm. Follow- up standard CT chest is recommended. Underlying nodule is not excluded. Series 4 image 18 No enlarged mediastinal or hilar adenopathy is evident. The ascending aorta diameter at the level o f the main pulmonary artery is 3.3 cm. The main pulmonary artery diameter at the bifurcation is 2.[address] sections are obtained through the upper abdomen. Abdomen is essentially unremarkable. IMPRESSIONS: 1. Atelectasis within the lingula. Some minimal underlying persistent density may be present. Recomme nd standard CT chest for additional evaluation. 2. Mild apical thickening right apex
== END | disposition home or self-care (01) ==
LOC: RADCTMAIN 16:34
PROVIDERS: ATTEND Internal Medicine Critical Care Medicine
DX: J98.11 Atelectasis (principal); J92.9 Pleural plaque without asbestos; J96.11 Chronic respiratory failure with hypoxia
CPT/HCPCS: 71250

== ENCOUNTER → 2019-12-11 | Outpatient (CLI) | payer MEDICARE, BC ==
--- NOTE | 2019-12-12 11:01 | MM ---
Reason for exam: screening (asymptomatic). Last mammogram was performed 1 year ago. History: Patient is postmenopausal. Family history of breast cancer in sister at age 49, breast cancer in paternal cousin at age 21, and breast cancer in sister at age 60. Physical Findings: A clinical breast exam by your physician is recommended on an annual basis and results should be correlated with mammographic findings. MG 3D Screening Mammo W/Cad Bilateral CC and MLO view(s) were taken. Prior study comparison: December 05, 2018, bilateral MG 3d screening mammo w/cad. March 15, 2018, bilateral MR breast bilat wo/w con. November 21, 2017, bilateral MG 3d diag mammo w/cad WILLIAM. September 18, 2015, bilateral MG 3d screening mammo w/cad. February 26, 2014, bilateral MG screening mammo w CAD. The breast tissue is heterogeneously dense. This may lower the sensitivity of mammography. Stable 8 o'clock intramammary node on the right seen only on 3D images. Posterior central asymmetric density partially visualized on the right CC view incompletely disperses on 3D. Further evaluation recommended as the tech also reports a questionable medial lump. ASSESSMENT: Incomplete: need additional imaging evaluation, BI-RAD 0 RECOMMENDATION: Special view mammogram and ultrasound of the right breast. [facility] will attempt to contact patient to return for supplemental views and ultrasound.
== END | disposition home or self-care (01) ==
LOC: RADMAMWWP 15:40
PROVIDERS: ATTEND Surgery
DX: Z12.31 Encounter for screening mammogram for malignant neoplasm of breast (principal)
CPT/HCPCS: 77063; 77067

== ENCOUNTER → 2019-12-25 | Outpatient (CLI) | payer MEDICARE, BC ==
--- NOTE | 2019-12-26 08:08 | MM ---
Reason for exam: additional evaluation requested from abnormal screening. Last mammogram was performed less than 1 month ago. History: Patient is postmenopausal. Family history of breast cancer in sister at age 49, breast cancer in paternal aunt at age 69, breast cancer in sister at age 55, and breast cancer in cousin at age 21. Physical Findings: Nurse did not find any significant physical abnormalities on exam. MG 3D Work Up W/Cad RT Spot compression CC, ML, and CCRL view(s) were taken of the right breast. Prior study comparison: December 11, 2019, bilateral MG 3d screening mammo w/cad. December 05, 2018, bilateral MG 3d screening mammo w/cad. The breast tissue is heterogeneously dense. This may lower the sensitivity of mammography. There is chronic nodularity in the right breast. The far posterior asymmetric density does not seem to persist on the spot 3D CC. The area could not be included on the CC rolled views. No abnormality on the lateral view. These results were verbally communicated with the patient and result sheet given to the patient on 12/25/19. ASSESSMENT: Incomplete: need additional imaging evaluation, BI-RAD 0 RECOMMENDATION: Ultrasound of the right breast. (medial palpable)
--- NOTE | 2019-12-26 08:09 | USB ---
Reason for exam: additional evaluation requested from abnormal screening. History: Patient is postmenopausal. Family history of breast cancer in sister at age 49, breast cancer in paternal aunt at age 69, breast cancer in sister at age 55, and breast cancer in cousin at age 21. US Breast Workup Limited RT Technologist: Diana Reddy Right limited breast ultrasound including focal area of concern, retroareolar and axilla demonstrates no cystic or solid lesion seen. Scanned 2-5 o'clock. These results were verbally communicated with the patient and result sheet given to the patient on 12/25/19. ASSESSMENT: Probably benign, BI-RAD 3 RECOMMENDATION: Follow-up diagnostic mammogram of the right breast in 6 months.
== END | disposition home or self-care (01) ==
LOC: RADMAMWWP 14:25
PROVIDERS: ATTEND Surgery
DX: R92.8 Other abnormal and inconclusive findings on diagnostic imaging of breast (principal)
CPT/HCPCS: 77065; 76642; G0279; 77061

== ENCOUNTER → 2020-01-31 | Outpatient (CLI) | payer MEDICARE, BC ==
[2020-01-31 16:05] VITALS: BP 123/65; PULSE 86; RESP 20; TEMP 98.7
--- NOTE | 2020-01-31 16:18 | P.PN ---
Subjective Progress Note Date: 01/31/20 Principal diagnosis: breast fibrocystic changes, and pain Joy is a 59-year-old white female who was initially seen for breast pain. She has a history of chronic breast discomfort. The discomfort was described as soreness in the lateral breast and chest wall including the ribs. It had been persistent for several years. She is postmenopausal. There was no cyclic nature to the discomfort. She drinks minimal coffee or tea. She is a former smoker and stopped in 2000, she does not drink pop. She has cut back on chocolate intake which used to be several times a week. She is not using any hormone replacement therapy. The patient's since her last visit has begun mult iple natural supplements as well as red light to her breast and has marked improvement in the discomfort in her breast. She is not using the red light at this present time. [place] [address] following this additional views of the right breast were recommended. These were performed in 9919. Following this an ultrasound of the right breast was performed. This was felt to be probably benign BIRADS 3 and follow-up diagnostic mammogram of the right breast in 6 months was recommended. No lesions of concern had been noted in the left breast. The patient states he is been no change in the breast discomfort. She does not feel any lumps masses or nodules in her breast. She is not complaining of any nipple discharge or skin changes. Family history: 1. Father: from lung cancer he was a smoker 2. Mother: Cerebral bleed 3. 2 sisters with breast cancer one in their 40s and one in their 50s 4. Grandmother maternal: Parotid cancer 5. Paternal aunt: Colon cancer 6. Second cousin in her 20s with breast cancer 7. Sister with cancer of the peritoneal lining, she is 8. neice: stage 4 glioblastoma at 24 Hormonal history: Menarche: 15 Pregnancies: 1 at 29, 1 child, did not breast-feed Menopause: 49 control pills: 5 years Hormones: Negative Past surgical history: 1. 2. Cholecystectomy 3. C4 to C6 corpectomy The operation was done secondary to an injury lifting the patient, following the procedure postoperatively the patient has had shortness of breath and severe pain in the head and neck area. She is felt to have shortness of breath due to her muscles and not her lungs as per pulmonary consultation. She is oxygen dependent. She also has central apnea Medical history: 1. Oxygen dependence believed to be secondary to chest wall muscles as well as some possible central apnea 2. Cervical thoracic and lumbar degenerative disc disease 3. Arthritis 4. High cholesterol 5. Ruby's disease 6. Urinary incontinence, neurogenic bladder 7. Patient is on auto-servo vent at night Social history: Smoke: One pack per day for 20 years, stopped smoking in 2000 Alcohol: Negative Drugs: Negative Review of systems: Headaches every day patient is on [place] and morphine HEENT: Blurred vision bilateral Decreased hearing Headaches as stated Breasts: As per HPI Cardiovascular: Reports chest pain, hypertension, shortness of breath Respiratory: Dependent on home oxygen, central apnea GI: Constipation : Stress incontinence, neurogenic bladder Musculoskeletal: Multiple degenerative disc disease Integument: Reports pruritus denies rashes Neurologic: Numbness in hands and feet on the right side of her body weakness in her arms Psychiatric: Depression Endocrine: Hypothyroidism Hematologic: Negative ALLERGIC: Seasonal ALLERGIES Objective - Vital Signs Vital signs: Vital Signs Temp 98.7 F 01/31/20 16:02 Pulse 86 01/31/20 16:02 Resp 20 01/31/20 16:02 BP 123/65 01/31/20 16:02 Pulse Ox 97 01/31/20 16:02 Intake & Output 01/30/20 01/31/20 01/31/20 18:59 06:59 18:59 Weight 74.389 kg - Exam BMI 30 - Constitutional General appearance: Present: average body habitus - EENT Eyes: Present: EOMI ENT: Present: hearing grossly normal - Respiratory Details: oxygen dependant Respiratory: bilateral: CTA - Cardiovascular Rhythm: regular Heart sounds: normal: S1, S2 - Gastrointestinal General gastrointestinal: Present: soft - Integumentary Integumentary: Present: normal turgor - Musculoskeletal Musculoskeletal: Present: gait normal - Psychiatric Psychiatric: Present: A&O x's 3, appropriate affect, intact judgment & insight - Additional findings Additional findings: breast exam: BRA: 40B inspection: bilateral nipple chronic inversion, grade 2 ptosis Palpation: Right breast: Multi-positional exam fibrocystic changes no dominant masses or nodules of concern Right axilla: No adenopathy of concern Left breast: Multiple positional exam fibrocystic changes no dominant masses or nodules of concern Left axilla: No adenopathy of concern Assessment and Plan Assessment: Impression/Plan: 1. Oxygen dependence believed to be secondary to chest wall muscles as well as some possible central apnea 2. Cervical thoracic and lumbar degenerative disc disease 3. Arthritis 4. High cholesterol 5. Ruby's disease 6. Urinary incontinence, neurogenic bladder 7. Patient is on auto-servo vent at night 8. Polycystic breast changes 9. Stable mastodynia 10. Chronic bilateral minimal nipple inversion Plan: 1. Repeat right breast mammogram in 6 months with physician exam at that time 2. Patient will modify lifestyle i.e. decreased caffeine intake as she is able to 3. Bilateral mammogram in 1 year CC: DR. Gomes encounter 20 minutes, > 50% of time in planning and counselling
== END | disposition home or self-care (01) ==
LOC: WWCWWP 14:55
PROVIDERS: ATTEND Surgery
DX: Z53.9 Procedure and treatment not carried out, unspecified reason (principal)

== ENCOUNTER → 2020-02-03 | Outpatient (CLI) | payer MEDICARE, BC ==
--- NOTE | 2020-02-04 14:47 | CT ---
EXAMINATION TYPE: CT cervical spine wo/w con DATE OF EXAM: 02/03/2020 COMPARISON: None HISTORY: cervical pain CT DLP: 2198 (cervical and chest) mGycm. Automated Exposure Control for Dose Reduction was Utilized. TECHNIQUE: CT scan of the cervical spine is obtained without contrast, axial images are obtained, sa gittal and coronal reformatted images are also reviewed. FINDINGS: There is anterior fusion surgical hardware from C4 through C6. No evidence of hardware fracture or ma lpositioning. Cervical spine is visualized in its entirety from C1 through upper thoracic levels, demonstrates sati sfactory alignment without evidence of acute fracture or dislocation. Prevertebral soft tissue appea rs within normal limits. The C1-C2 articulation is within normal limits on the coronal images. Multilevel anterior and lateral osteophytic spurring. There is multilevel bilateral mild neural zheng austin narrowing. There is moderate neural foramen at C6-C7 on the left and C7-T1 on the left. There are disc osteophyte complexes with indention of the ventral aspect of the thecal sac, with no spinal can al stenosis. Thyroid gland is felt within normal limits. Visualized lung apices are clear. IMPRESSION: 1. Anterior fusion postsurgical changes from C4 through C6 with no evidence of hardware failure. 2. No acute fracture or dislocation. 3. Mild to moderate multilevel neural foramina narrowing. No significant spinal canal stenosis.
--- NOTE | 2020-02-04 18:54 | CT ---
EXAMINATION TYPE: CT chest w con DATE OF EXAM: 02/03/2020 COMPARISON: CT chest 12/05/2019 HISTORY: abn lung field CT DLP: 2198 (chest and cervical) mGycm Automated exposure control for dose reduction was used. CONTRAST: CT scan of the chest is performed with IV Contrast, patient injected with 100 mL of Isovue 300. FINDINGS: LUNGS: Lungs are grossly clear. There is redemonstrated subsegmental atelectasis and/or scarring of t he left upper lobe lingula. No concerning parenchymal mass identified. No pleural effusion. No pneumo thorax. The tracheobronchial tree is patent. MEDIASTINUM/SOFT TISSUES: No axillary, hilar, or mediastinal lymphadenopathy greater than 1 cm. Cardi ac size is normal. No pericardial effusion. No thoracic aortic aneurysm. UPPER ABDOMEN: Fatty liver. OSSEOUS: Degenerative changes of the spine. Cervical spine fusion hardware. IMPRESSION: 1. Redemonstrated subsegmental atelectasis and/or scarring of the lingula, similar to 12/05/2019 zari duffy. 2. Report Fatty liver.
== END | disposition home or self-care (01) ==
LOC: RADCTMAIN 13:15
PROVIDERS: ATTEND Internal Medicine
DX: M48.02 Spinal stenosis, cervical region (principal); R91.8 Other nonspecific abnormal finding of lung field; Z98.1 Arthrodesis status
CPT/HCPCS: 82565; 84520; 72127; 71260; 36415; Q9967

== ENCOUNTER 2020-09-19 11:08 | Emergency (ER) | payer MEDICARE, BC ==
[2020-09-19 11:21] VITALS: BP 111/66; PULSE 85; RESP 20; TEMP 97.7
[2020-09-19] MEDS ORDERED: RABIES VACCINE (PCEC) 2.5 UNIT KIT IM ONE (11:43)
[2020-09-19] MEDS ORDERED: RABIES IMMUNE GLOB 300 UNIT/ML 1 ML VIAL IM ONE (11:45)
[2020-09-19] MEDS ORDERED: RABIES IMMUNE GLOB 300 UNIT/ML 5 ML VIAL IM ONE (12:00)
--- NOTE | 2020-09-19 12:10 | ED ---
Animal Bite HPI - General Chief Complaint: Animal Bite Stated Complaint: Poss rabies exposure Time Seen by Provider: 09/19/20 11:23 Source: patient Mode of arrival: ambulatory Limitations: no limitations - History of Present Illness Initial Comments: 59-year-old male presents to emergency department with chief complaint to a possible bat exposure. States that earlier today she noticed there was a bat in the house which she thought at one point he had left the house. States she slept for a short period of time and then noticed the bat again when she woke up. She denies any noticeable bite hui on her body. Patient would like rabies prophylaxis. - Related Data Home Medications Medication Instructions Recorded Confirmed Gabapentin [Neurontin] 800 mg PO QAM 04/07/14 01/31/20 Hydrocodone/Acetaminophen [[place] 1 tab PO BID PRN 04/07/14 01/31/20 10-325] Cholecalciferol [Vitamin D3 (25 5,000 unit PO HS 08/09/15 01/31/20 Mcg = 1000 Iu)] Morphine Sulfate ER [Ms Contin] 30 mg PO BID 08/09/15 01/31/20 Verapamil HCl [Verapamil ER] 180 mg PO QAM 09/10/15 01/31/20 Sucralfate [Carafate] 1 tab PO TID 01/19/18 01/31/20 Biotin 10,000 mcg PO HS 12/14/18 01/31/20 Calcium Carbonate [Calcium] 1,200 mg PO HS 12/14/18 01/31/20 Venlafaxine HCl ER [Effexor XR] 150 mg PO QAM 12/14/18 01/31/20 Erenumab-Aooe [[place] 70 mg SQ QMONTHLY 01/31/20 01/31/20 Autoinjector] Allergies Allergy/AdvReac Type Severity Reaction Status Date / Time alprazolam [From Xanax] Allergy INSOMNIA Verified 09/19/20 11:21 hydromorphone HCl Allergy Nausea Verified 09/19/20 11:21 [From Dilaudid] sumatriptan [From Imitrex] Allergy Chest Pain Verified 09/19/20 11:21 sumatriptan succinate Allergy Chest Pain Verified 09/19/20 11:21 [From Imitrex] tapentadol HCl [From Nucynta] Allergy Chest Pain Verified 09/19/20 11:21 atenolol AdvReac Unknown Verified 09/19/20 11:21 Review of Systems ROS Statement: Those systems with pertinent positive or pertinent negative responses have been documented in the HPI. ROS Other: All systems not noted in ROS Statement are negative. Past Medical History Past Medical History: GERD/Reflux, Hyperlipidemia, Hypertension, Musculoskeletal Disorder Additional Past Medical History / Comment(s): Cervical disc disease status post C4-C5 and C5-C6 corpectomy decompression and fusion that was done [address] Rodriges. Central sleep apnea on Servo ventilation History of Any Multi-Drug Resistant Organisms: None Reported Past Surgical History: Section, Cholecystectomy Additional Past Surgical History / Comment(s): Cervical decompression/stabilization. cor pectomy c4-c6 with donor bone plates and screws Past Anesthesia/Blood Transfusion Reactions: No Reported Reaction Past Psychological History: No Psychological Hx Reported Smoking Status: Former smoker Past Alcohol Use History: None Reported Past Drug Use History: None Reported - Past Family History Father Additional Family Medical History / Comment(s): Father at age 60 from lung cancer. Mother Additional Family Medical History / Comment(s): Mother at age 66 from cerebral aneurysm. Sister(s) Family Medical History: Cancer Additional Family Medical History / Comment(s): Patient has 2 sisters and one has had breast cancer and one has had peritoneal cancer at age 14. She has one brother with no major medical problems. Patient has one daughter with no major medical problems. General Exam Limitations: no limitations General appearance: alert, in no apparent distress Head exam: Present: atraumatic, normocephalic, normal inspection Eye exam: Present: normal appearance, PERRL, EOMI Pupils: Present: normal accommodation ENT exam: Present: normal exam, normal oropharynx, mucous membranes moist Neck exam: Present: normal inspection, full ROM. Absent: tenderness Respiratory exam: Present: normal lung sounds bilaterally (Patient uses oxygen at baseline). Absent: respiratory distress Cardiovascular Exam: Present: regular rate, normal rhythm, normal heart sounds. Absent: systolic murmur Extremities exam: Present: normal inspection, full ROM. Absent: tenderness Back exam: Present: normal inspection, full ROM. Absent: tenderness Neurological exam: Present: alert, oriented X3 Psychiatric exam: Present: normal affect, normal mood Skin exam: Present: warm, dry, intact, normal color Course Vital Signs 09/19/20 11:17 Temperature 97.7 F Pulse Rate 85 Respiratory 20 Rate Blood Pressure 111/66 O2 Sat by Pulse 99 Oximetry Medical Decision Making - Medical Decision Making 60-year-old female presents to the emergency department with a chief complaint of possible exposure to a bat. Patient was given rabies immunoglobulin and vaccine. She will be vaccinated in a series on day 3, 7 and 14. Case discussed with Dr. Stokes. Disposition Clinical Impression: Rabies contact Disposition: HOME SELF-CARE Condition: Stable Instructions (If sedation given, give patient instructions): Animal Bite (ED) Additional Instructions: Please return to the Emergency Department if symptoms worsen or any other concerns. Is patient prescribed a controlled substance at d/c from ED?: No Referrals: Fernando Guerrero DO [Primary Care Provider] - 1-2 days Time of Disposition: 12:25
== END 2020-09-19 12:47 | disposition home or self-care (01) ==
LOC: EC 11:08
DX: Z20.3 Contact with and (suspected) exposure to rabies (principal); E78.5 Hyperlipidemia, unspecified; I10 Essential (primary) hypertension; K21.9 Gastro-esophageal reflux disease without esophagitis; Z87.891 Personal history of nicotine dependence
CPT/HCPCS: 90375; 90471; 90675; 96372; 99282

== ENCOUNTER 2021-06-02 17:32 | Emergency (ER) | payer MEDICARE, BC ==
[2021-06-02 17:38] VITALS: BP 113/60; PULSE 94; RESP 20; TEMP 98.4
[2021-06-02] MEDS: ORPHENADRINE 30 MG/ML 2 ML VIAL IM STA ×2 (18:23→18:26)
[2021-06-02] MEDS: HYDROmorphone 1 MG/ML 1 ML SYRINGE IM STA ×2 (18:24→18:25)
[2021-06-02] MEDS ORDERED: ORPHENADRINE 30 MG/ML 2 ML VIAL IM STA (18:26)
[2021-06-02] MEDS ORDERED: HYDROcodone/APAP 7.5-325MG 1 EACH TAB PO ONE (18:33)
--- NOTE | 2021-06-02 19:14 | XR ---
EXAMINATION TYPE: XR shoulder complete RT DATE OF EXAM: 06/02/2021 COMPARISON: 08/09/2015 HISTORY: Pain TECHNIQUE: 3 views FINDINGS: The glenohumeral joint is intact. There is some spurring at the AC joint. I see no fracture nor dislocation. IMPRESSION: Minor degenerative changes in the shoulder joint. No fracture. No adverse change compared to old exam.
--- NOTE | 2021-06-02 19:16 | ED ---
Fall HPI - General Chief Complaint: Fall Stated Complaint: slip & fall on ice Time Seen by Provider: 06/02/21 17:59 Source: patient Mode of arrival: ambulatory - History of Present Illness Initial Comments: Patient is a 61-year-old female who presents to the emergency department due to a fall. Patient fell yesterday on ice around 5:30 PM, no LOC. She is not on blood thinners. She did not hit her head. Patient fell onto her right side onto her right upper and right lower extremity. Patient currently reports moderate pain of the cervical/thoracic/lumbosacral vertebrae. She reports mild pain of the right shoulder as well as severe pain in the right forearm and right wrist/hand. She denies right anatomical snuffbox tenderness. Patient also reports moderate pain in the right hip and and right knee. Patient denies fever, chills, generalized weakness, headache, shortness of breath, cough, chest pain, palpitations, abdominal pain, nausea, vomiting, diarrhea, constipation, and dysuria. - Related Data Home Medications Medication Instructions Recorded Confirmed Calcium Carbonate [Calcium] 1,200 mg PO HS 12/14/18 09/22/20 Ascorbic Acid [Vitamin C] 500 mg PO DAILY 06/02/21 06/02/21 Cholecalciferol [Vitamin D3 (125 125 mcg PO DAILY 06/02/21 06/02/21 Mcg = 5000 Iu)] Diclofenac Sodium/Misoprostol 1 tab PO DAILY 06/02/21 06/02/21 [Diclofenac-Misoprost 75-0.2 mg] Levothyroxine Sodium [Synthroid] 25 mcg PO DAILY 06/02/21 06/02/21 Morphine Sulfate [Ms Contin] 30 mg PO BID 06/02/21 06/02/21 Omeprazole 20 mg PO DAILY PRN 06/02/21 06/02/21 Pravastatin Sodium [Pravachol] 40 mg PO DAILY 06/02/21 06/02/21 Venlafaxine HCl [Effexor XR] 150 mg PO DAILY 06/02/21 06/02/21 Verapamil HCl [Verapamil ER] 240 mg PO DAILY 06/02/21 06/02/21 acetaZOLAMIDE [acetaZOLAMIDE ER] 500 mg PO DAILY 06/02/21 06/02/21 armodafiniL [Armodafinil] 200 mg PO DAILY 06/02/21 06/02/21 metFORMIN HCL [Glucophage] 500 mg PO BID 06/02/21 06/02/21 methocarbamoL [Methocarbamol] 500 mg PO DAILY PRN 06/02/21 06/02/21 Allergies Allergy/AdvReac Type Severity Reaction Status Date / Time alprazolam [From Xanax] Allergy INSOMNIA Verified 06/02/21 19:28 hydromorphone HCl Allergy Nausea Verified 06/02/21 19:28 [From Dilaudid] sumatriptan [From Imitrex] Allergy Chest Pain Verified 06/02/21 19:28 sumatriptan succinate Allergy Chest Pain Verified 06/02/21 19:28 [From Imitrex] tapentadol HCl [From Nucynta] Allergy Chest Pain Verified 06/02/21 19:28 atenolol AdvReac Unknown Verified 06/02/21 19:28 Review of Systems ROS Statement: Those systems with pertinent positive or pertinent negative responses have been documented in the HPI. ROS Other: All systems not noted in ROS Statement are negative. Past Medical History Past Medical History: GERD/Reflux, Hyperlipidemia, Hypertension, Musculoskeletal Disorder Additional Past Medical History / Comment(s): Cervical disc disease status post C4-C5 and C5-C6 corpectomy decompression and fusion that was done [address] Rodriges. Central sleep apnea on Servo ventilation History of Any Multi-Drug Resistant Organisms: None Reported Past Surgical History: Section, Cholecystectomy Additional Past Surgical History / Comment(s): Cervical decompression/stabilization. cor pectomy c4-c6 with donor bone plates and screws Past Anesthesia/Blood Transfusion Reactions: No Reported Reaction Past Psychological History: No Psychological Hx Reported Smoking Status: Former smoker Past Alcohol Use History: None Reported Past Drug Use History: None Reported - Past Family History Father Additional Family Medical History / Comment(s): Father at age 60 from lung cancer. Mother Additional Family Medical History / Comment(s): Mother at age 66 from cerebral aneurysm. Sister(s) Family Medical History: Cancer Additional Family Medical History / Comment(s): Patient has 2 sisters and one has had breast cancer and one has had peritoneal cancer at age 14. She has one brother with no major medical problems. Patient has one daughter with no major medical problems. General Exam Limitations: no limitations General appearance: alert, in no apparent distress Head exam: Present: atraumatic, normocephalic, normal inspection Neck exam: Present: normal inspection. Absent: tenderness Respiratory exam: Present: normal lung sounds bilaterally. Absent: respiratory distress, wheezes, rales, rhonchi, stridor Cardiovascular Exam: Present: regular rate, normal rhythm, normal heart sounds. Absent: systolic murmur, diastolic murmur, rubs, gallop, clicks GI/Abdominal exam: Present: soft, normal bowel sounds. Absent: distended, tenderness, guarding, rebound, rigid Right Shoulder Exam: Present: normal inspection, full ROM. Absent: tenderness, swelling, deformity, dislocation, erythema, tenderness over AC joint Upper Arm exam: Present: normal inspection, full ROM. Absent: tenderness, swelling, deformity, erythema Elbow exam: Present: normal inspection, full ROM. Absent: tenderness, swelling, deformity, dislocation, erythema, effusion Forearm Wrist exam: Present: tenderness (Anteriorly and posteriorly over the distal forearm and radial and ulnar region), swelling, ecchymosis (posteriorly over the distal forearm and radial and ulnar region). Absent: normal inspection, full ROM (Range of motion limited due to pain), deformity, erythema Hand Wrist exam: Present: normal inspection, full ROM. Absent: tenderness, swelling, ecchymosis, deformity, dislocation Right Hip exam: Present: normal inspection, full ROM. Absent: tenderness, swelling, ecchymosis, dislocation Knee exam: Present: full ROM, abrasion (anteriorly ). Absent: normal inspection, tenderness, swelling, laceration, ecchymosis, deformity, erythema, effusion Lower Leg exam: Present: normal inspection, full ROM. Absent: tenderness, swelling, abrasion, ecchymosis Neurovascular tendon exam: Present: no vascular compromise. Absent: pulse deficit, abnormal cap refill, sensory deficit Back exam: Present: normal inspection, full ROM. Absent: tenderness, paraspinal tenderness, vertebral tenderness Neurological exam: Present: alert, oriented X3, CN II-XII intact Psychiatric exam: Present: normal affect, normal mood Skin exam: Present: warm, dry, intact, normal color. Absent: rash Course Vital Signs 06/02/21 17:34 Temperature 98.4 F Pulse Rate 94 Respiratory 20 Rate Blood Pressure 113/60 O2 Sat by Pulse 100 Oximetry Medical Decision Making - Medical Decision Making This is a 61-year-old female who presents due to a fall on ice. Thorough history and examination were performed. Cervical CT reveals no fracture or changes from previous imaging. Right shoulder x-ray negative for fracture. Right forearm/wrist x-ray reveals acute impacted transverse intra-articular fracture of the distal radius. Right hip and right knee xray are negative for fracture or dislocation. Results discussed with patient. Right arm was placed in sugar tong splint. Patient was referred to academic records specialist at earliest available appointment. Return parameters discussed. Dr. Burciaga is my attending. Disposition Clinical Impression: Fracture Disposition: HOME SELF-CARE Condition: Good Instructions (If sedation given, give patient instructions): Fall Prevention (ED) Additional Instructions: Your right wrist/forearm xray reveals an acute impacted transverse intra- articular fracture of the distal radius. Follow-up with academic records specialist at earliest available appointment for further evaluation and management. Take Motrin or Tylenol for pain. Return to the emergency department if you experience new, concerning, or worsening symptoms. Is patient prescribed a controlled substance at d/c from ED?: No Referrals: Fernando Guerrero DO [Primary Care Provider] - 1-2 days Mraito Jarrett MD [STAFF PHYSICIAN] - 1-2 days Time of Disposition: 21:09
--- NOTE | 2021-06-02 19:16 | XR ---
EXAMINATION TYPE: XR forearm RT DATE OF EXAM: 06/02/2021 COMPARISON: NONE HISTORY: Fall. Pain. TECHNIQUE: 2 views FINDINGS: There is slightly impacted transverse fracture distal radial metaphysis. Elbow joint appear s intact. There is no dislocation. The carpal bones are intact. Ulna appears intact. IMPRESSION: Acute mildly impacted distal radius fracture.
--- NOTE | 2021-06-02 19:22 | XR ---
EXAMINATION TYPE: XR knee complete RT DATE OF EXAM: 06/02/2021 COMPARISON: NONE HISTORY: Knee pain TECHNIQUE: 3 views FINDINGS: There is no sign of fracture nor dislocation. Joint spaces are fairly normal. There is no s ign of a joint effusion. IMPRESSION: Negative right knee exam. No fracture seen.
--- NOTE | 2021-06-02 19:23 | XR ---
EXAMINATION TYPE: XR hand limited RT DATE OF EXAM: 06/02/2021 COMPARISON: NONE HISTORY: Pain TECHNIQUE: 2 views FINDINGS: There is a transverse impacted distal radius fracture. Fracture line extends to the radioca rpal joint. There is no dislocation. Carpal bones are intact. Metacarpals are intact. The fingers are intact. There is no subluxation. IMPRESSION: Acute impacted intra-articular fracture distal radius.
--- NOTE | 2021-06-02 19:24 | XR ---
EXAMINATION TYPE: XR chest 2V DATE OF EXAM: 06/02/2021 COMPARISON: NONE HISTORY: Chest pain TECHNIQUE: 2 views FINDINGS: There is no heart failure nor confluent pneumonic infiltrate. Costophrenic angles are clear . There are no hilar masses. The bony thorax is intact. Heart size is normal. IMPRESSION: No active cardiopulmonary disease. Normal heart. No change.
--- NOTE | 2021-06-02 19:25 | XR ---
EXAMINATION TYPE: XR Hip Complete RT DATE OF EXAM: 06/02/2021 COMPARISON: NONE HISTORY: Pain. Fall. TECHNIQUE: 2 views FINDINGS: There is mild acetabular spurring. Proximal femur is intact. I see no fracture nor dislocat ion. IMPRESSION: No acute abnormality of the right hip.
--- NOTE | 2021-06-02 19:26 | XR ---
EXAMINATION TYPE: XR wrist complete RT DATE OF EXAM: 06/02/2021 COMPARISON: NONE HISTORY: Pain TECHNIQUE: 4 views FINDINGS: There is acute mildly impacted transverse fracture distal radial metaphysis. Fracture line also extends to the radiocarpal joint. Distal ulna is intact. The carpal bones are intact. Scaphoid a ppears normal. There is no dislocation. IMPRESSION: Acute impacted transverse intra-articular fracture distal radius.
--- NOTE | 2021-06-02 19:43 | CT ---
EXAMINATION TYPE: CT cervical spine wo con DATE OF EXAM: 06/02/2021 COMPARISON: 02/03/2020 HISTORY: Pt fall, c/o neck pain CT DLP: 503.1 mGycm Automated exposure control for dose reduction was used. Images obtained from the skull base to T1 vertebra without contrast. The vertebra have normal alignment. There is multilevel anterior fusion surgery at C4 and C5 and C6. The posterior elements are intact. There is mild spurring of the facet joints. Prevertebral soft tiss ues are intact. There is large anterior bridging osteophyte at C2-3. There is no subluxation. The sku ll base is intact. There is normal aeration of the mastoid sinuses. IMPRESSION: Multilevel fusion surgery. Spondylotic changes. No fracture. No change compared to old exam.
== END 2021-06-02 21:17 | disposition home or self-care (01) ==
LOC: EC 17:32
DX: S52.501A Unspecified fracture of the lower end of right radius, initial encounter for closed fracture (principal); K21.9 Gastro-esophageal reflux disease without esophagitis; E78.5 Hyperlipidemia, unspecified; I10 Essential (primary) hypertension; Z79.84 Long term (current) use of oral hypoglycemic drugs; Z88.2 Allergy status to sulfonamides; Z88.1 Allergy status to other antibiotic agents; Z90.49 Acquired absence of other specified parts of digestive tract; Z87.891 Personal history of nicotine dependence; W00.0XXA Fall on same level due to ice and snow, initial encounter
CPT/HCPCS: 99284; 96372; 29125; 73502; 73030; 73090; 73110; 73120; 73562; 71046; 72125; J2360

== ENCOUNTER → 2023-07-21 | Outpatient (CLI) | payer MEDICARE, BC ==
[2023-07-21 19:31] LABS: Blood Urea Nitrogen 18.4 mg/dL (9.0-27.0)
== END | disposition home or self-care (01) ==
LOC: LABWHC1 15:35
DX: Z01.812 Encounter for preprocedural laboratory examination (principal)
CPT/HCPCS: 36415; 82565; 84520

== ENCOUNTER 2024-08-26 17:19 | Observation (INO) | payer MEDICARE, BC ==
--- NOTE | 2024-08-26 18:00 | ED ---
General Adult HPI - General Chief complaint: Chest Pain Stated complaint: chest pain, cold sweats Time Seen by Provider: 08/26/24 17:38 Source: patient, RN notes reviewed Mode of arrival: ambulatory Limitations: no limitations - History of Present Illness Initial comments: Patient is a 64-year-old female present to the emergency department with chest discomfort. Onset of symptoms was today. Patient has some tightness in her chest that has been intermittent, currently no discomfort. Patient has had episodes of diaphoresis and lightheadedness for the past 3 to 4 days. Patient has had some nausea as well. - Related Data Home Medications Medication Instructions Recorded Confirmed Calcium Carbonate [Calcium] 600 mg PO DAILY 12/14/18 06/02/21 Ascorbic Acid [Vitamin C] 500 mg PO DAILY 06/02/21 06/02/21 Cholecalciferol [Vitamin D3 (125 125 mcg PO DAILY 06/02/21 06/02/21 Mcg = 5000 Iu)] Diclofenac Sodium/Misoprostol 1 tab PO DAILY 06/02/21 06/02/21 [Diclofenac-Misoprost 75-0.2 mg] Levothyroxine Sodium [Synthroid] 25 mcg PO DAILY 06/02/21 06/02/21 Morphine Sulfate [Ms Contin] 30 mg PO BID 06/02/21 06/02/21 Omeprazole 20 mg PO DAILY PRN 06/02/21 06/02/21 Pravastatin Sodium [Pravachol] 40 mg PO DAILY 06/02/21 06/02/21 Venlafaxine HCl [Effexor XR] 150 mg PO DAILY 06/02/21 06/02/21 Verapamil HCl [Verapamil ER] 240 mg PO DAILY 06/02/21 06/02/21 acetaZOLAMIDE [acetaZOLAMIDE ER] 500 mg PO DAILY 06/02/21 06/02/21 armodafiniL [Armodafinil] 200 mg PO DAILY 06/02/21 06/02/21 metFORMIN HCL [Glucophage] 500 mg PO BID 06/02/21 06/02/21 methocarbamoL [Methocarbamol] 500 mg PO DAILY PRN 06/02/21 06/02/21 Allergies Allergy/AdvReac Type Severity Reaction Status Date / Time alprazolam [From Xanax] Allergy INSOMNIA Verified 08/26/24 17:34 hydromorphone HCl Allergy Nausea Verified 08/26/24 17:34 [From Dilaudid] sumatriptan [From Imitrex] Allergy Chest Pain Verified 08/26/24 17:34 sumatriptan succinate Allergy Chest Pain Verified 08/26/24 17:34 [From Imitrex] tapentadol HCl [From Nucynta] Allergy Chest Pain Verified 08/26/24 17:34 atenolol AdvReac Unknown Verified 08/26/24 17:34 Review of Systems ROS Statement: Those systems with pertinent positive or pertinent negative responses have been documented in the HPI. ROS Other: All systems not noted in ROS Statement are negative. Constitutional: Denies: fever Eyes: Denies: eye pain ENT: Denies: ear pain Cardiovascular: Reports: chest pain Musculoskeletal: Reports: other (Chronic neck problems) Past Medical History Past Medical History: GERD/Reflux, Hyperlipidemia, Hypertension, Musculoskeletal Disorder Additional Past Medical History / Comment(s): Cervical disc disease status post C4-C5 and C5-C6 corpectomy decompression and fusion that was done [address] Rodriges. Central sleep apnea on Servo ventilation History of Any Multi-Drug Resistant Organisms: None Reported Past Surgical History: Section, Cholecystectomy Additional Past Surgical History / Comment(s): Cervical decompression/stabilization. cor pectomy c4-c6 with donor bone plates and screws Past Anesthesia/Blood Transfusion Reactions: No Reported Reaction Past Psychological History: No Psychological Hx Reported Smoking Status: Former smoker Past Alcohol Use History: None Reported Past Drug Use History: None Reported - Past Family History Father Additional Family Medical History / Comment(s): Father at age 60 from lung cancer. Mother Additional Family Medical History / Comment(s): Mother at age 66 from cerebral aneurysm. Sister(s) Family Medical History: Cancer Additional Family Medical History / Comment(s): Patient has 2 sisters and one has had breast cancer and one has had peritoneal cancer at age 14. She has one brother with no major medical problems. Patient has one daughter with no major medical problems. General Exam Limitations: no limitations General appearance: alert, in no apparent distress Head exam: Present: normocephalic Eye exam: Present: normal appearance Neck exam: Present: normal inspection Respiratory exam: Present: normal lung sounds bilaterally Cardiovascular Exam: Present: regular rate, normal rhythm, normal heart sounds Expanded Peripheral pulses: 2+: Radial (R), Radial (L), Dorsalis Pedis (R), Dorsalis Ped is (L) GI/Abdominal exam: Present: soft. Absent: tenderness Extremities exam: Present: normal inspection. Absent: pedal edema, calf tenderness Neurological exam: Present: alert Psychiatric exam: Present: normal affect, normal mood Skin exam: Present: normal color Course Vital Signs 08/26/24 08/26/24 17:25 18:20 Temperature 98.0 F Pulse Rate 103 H 99 Respiratory 22 22 Rate Blood Pressure 178/102 184/78 O2 Sat by Pulse 98 95 Oximetry EKG Findings - EKG Results: EKG: interpreted by ERMD (Nonspecific ST-T), sinus rhythm, normal axis, normal QRS Medical Decision Making - Medical Decision Making Was pt. sent in by a medical professional or institution ([facility], INSTRUMENT ENGINEER, urgent care, hospital, or intermediate...) When possible be specific @ -No Did you speak to anyone other than the patient for history (EMS, parent, family, police, friend...)? What history was obtained from this source @ -No Did you review nursing and triage notes (agree or disagree)? Why? @ -I reviewed and agree with nursing and triage notes Were old charts reviewed (outside hosp., previous admission, EMS record, old EKG, old radiological studies, urgent care reports/EKG's, intermediate records)? Report findings @ -Previous blood sugars reviewed, none over 150 Differential Diagnosis (chest pain, altered mental status, abdominal pain women, abdominal pain men, vaginal bleeding, weakness, fever, dyspnea, syncope, headache, dizziness, GI bleed, back pain, seizure, CVA, palpatations, mental health, musculoskeletal)? @ -Differential Chest Pain: Stable Angina, Unstable Angina, STEMI, NSTEMI Aortic Dissection, Pneumothorax, Musculoskeletal, Esophageal Spasm GERD, Cholecystitis, Pancreatitis, Zoster, this is not meant to be an all-inclusive list. EKG interpreted by me (3pts min.). @ -As above X-rays interpreted by me (1pt min.). @ -Chest x-ray shows no acute process CT interpreted by me (1pt min.). @ -None done U/S interpreted by me (1pt. min.). @ -None done What testing was considered but not performed or refused? (CT, X-rays, U/S, labs)? Why? @ -None What meds were considered but not given or refused? Why? @ -None Did you discuss the management of the patient with other professionals (professionals i.e. Dr., PA, INSTRUMENT ENGINEER, lab, RT, psych nurse, social service worker, associate partner, teacher, chief resource officer, clinical case manager)? Give summary @ -Case was discussed with Dr. Pickard who will admit covering Dr. Kirk me Was smoking cessation discussed for >3mins.? @ -No Was critical care preformed (if so, how long)? @ -No Were there social determinants of health that impacted care today? How? (Homel essness, low income, unemployed, alcoholism, drug addiction, transportation, low edu. Level, literacy, decrease access to med. care, custodial, rehab)? @ -No Was there de-escalation of care discussed even if they declined (Discuss DNR or withdrawal of care, Hospice)? DNR status @ -No What co-morbidities impacted this encounter? (DM, HTN, Smoking, COPD, CAD, Cancer, CVA, ARF, Chemo, Hep., AIDS, mental health diagnosis, sleep apnea, morbid obesity)? @ -History of diabetes Was patient admitted / discharged? Hospital course, mention meds given and route, prescriptions, significant lab abnormalities, going to OR and other pertinent info. @ -Patient presents with chest discomfort and diaphoresis. Initial troponin unremarkable. Patient will be admitted for further evaluation and treatment and cardiac evaluation. Patient reevaluated and updated. Insulin provided for hyperglycemia Undiagnosed new problem with uncertain prognosis? @ -No Drug Therapy requiring intensive monitoring for toxicity (Heparin, Nitro, Insulin, Cardizem)? @ -No Were any procedures done? @ -No Diagnosis/symptom? @ -Chest pain Acute, or Chronic, or Acute on Chronic? @ -Acute Uncomplicated (without systemic symptoms) or Complicated (systemic symptoms)? @ -Complicated with hyperglycemia Side effects of treatment? @ -No Exacerbation, Progression, or Severe Exacerbation? @ -No Poses a threat to life or bodily function? How? (Chest pain, USA, IA, pneumonia, PE, COPD, DKA, ARF, appy, cholecystitis, CVA, Diverticulitis, Homicidal, Suicidal, threat to staff... and all critical care pts) @ -Threat to cardiac function - Lab Data Result diagrams: 08/26/24 18:05 08/26/24 18:05 Lab Results 08/26/24 08/26/24 08/26/24 Range/Units 18:05 18:05 18:05 WBC 7.54 (4.50-10.00) 10*3/uL RBC 4.91 (4.10-5.20) 10*6/uL Hgb 14.1 (12.0-15.0) g/dL Hct 42.0 (37.2-46.3) % MCV 85.5 (80.0-97.0) fL MCH 28.7 (27.0-32.0) pg MCHC 33.6 (32.0-37.0) g/dL Plt Count 245 (140-440) 10*3/uL MPV 8.6 L (9.5-12.2) fL Immature Gran % (Auto) 0.1 % Neutrophils % 58.6 % Lymphocytes % 32.5 % Monocytes % 5.7 % Eosinophils % 2.3 % Basophils % 0.8 % Immature Gran # 0.01 (0.00-0.04) 10*3/uL Neutrophils # 4.42 (1.80-7.70) 10*3/uL Lymphocytes # 2.45 (0.90-5.00) 10*3/uL Monocytes # 0.43 (0.20-1.00) 10*3/uL Eosinophils # 0.17 (0.04-0.35) 10*3/uL Basophils # 0.06 (0.00-0.10) 10*3/uL PT 10.2 (10.0-12.5) sec INR 0.9 (<1.2) APTT 22.1 (22.0-30.0) sec D-Dimer 0.23 (<0.60) mg/L FEU Sodium 134 L (137-145) mmol/L Potassium 3.6 (3.5-5.1) mmol/L Chloride 94 L (98-107) mmol/L Carbon Dioxide 26 (22-30) mmol/L Anion Gap 14 mmol/L BUN 18 H (7-17) mg/dL Creatinine 0.76 (0.52-1.04) mg/dL Est GFR (CKD-EPI)AfAm >90 (>60 ml/min/1.73 sqM) Est GFR (CKD-EPI)NonAf 85 (>60 ml/min/1.73 sqM) Glucose 425 H (74-99) mg/dL Calcium 10.6 H (8.4-10.2) mg/dL Magnesium 1.6 (1.6-2.3) mg/dL Total Bilirubin 0.7 (0.2-1.3) mg/dL AST 41 H (14-36) U/L ALT 32 (4-34) U/L Alkaline Phosphatase 124 (38-126) U/L Troponin I (0.000-0.034) ng/mL NT-Pro-B Natriuret Pep 68 pg/mL Total Protein 7.9 (6.3-8.2) g/dL Albumin 4.9 (3.5-5.0) g/dL /04/10 Range/Units 18:05 WBC (4.50-10.00) 10*3/uL RBC (4.10-5.20) 10*6/uL Hgb (12.0-15.0) g/dL Hct (37.2-46.3) % MCV (80.0-97.0) fL MCH (27.0-32.0) pg MCHC (32.0-37.0) g/dL Plt Count (140-440) 10*3/uL MPV (9.5-12.2) fL Immature Gran % (Auto) % Neutrophils % % Lymphocytes % % Monocytes % % Eosinophils % % Basophils % % Immature Gran # (0.00-0.04) 10*3/uL Neutrophils # (1.80-7.70) 10*3/uL Lymphocytes # (0.90-5.00) 10*3/uL Monocytes # (0.20-1.00) 10*3/uL Eosinophils # (0.04-0.35) 10*3/uL Basophils # (0.00-0.10) 10*3/uL PT (10.0-12.5) sec INR (<1.2) APTT (22.0-30.0) sec D-Dimer (<0.60) mg/L FEU Sodium (137-145) mmol/L Potassium (3.5-5.1) mmol/L Chloride (98-107) mmol/L Carbon Dioxide (22-30) mmol/L Anion Gap mmol/L BUN (7-17) mg/dL Creatinine (0.52-1.04) mg/dL Est GFR (CKD-EPI)AfAm (>60 ml/min/1.73 sqM) Est GFR (CKD-EPI)NonAf (>60 ml/min/1.73 sqM) Glucose (74-99) mg/dL Calcium (8.4-10.2) mg/dL Magnesium (1.6-2.3) mg/dL Total Bilirubin (0.2-1.3) mg/dL AST (14-36) U/L ALT (4-34) U/L Alkaline Phosphatase (38-126) U/L Troponin I <0.012 (0.000-0.034) ng/mL NT-Pro-B Natriuret Pep pg/mL Total Protein (6.3-8.2) g/dL Albumin (3.5-5.0) g/dL Disposition Clinical Impression: Chest pain Disposition: ADMITTED IP TO THIS HOSP Is patient prescribed a controlled substance at d/c from ED?: No Referrals: Fernando Guerrero DO [Primary Care Provider] - 1-2 days Time of Disposition: 19:12
[2024-08-26 18:18] LABS: Basophils # (A) 0.06 10*3/uL (0.00-0.10); Basophils % (A) 0.8 %; Eosinophils # (A) 0.17 10*3/uL (0.04-0.35); Eosinophils % (A) 2.3 %; HGB 14.1 g/dL (12.0-15.0); Lymphocytes # (A) 2.45 10*3/uL (0.90-5.00); Lymphocytes % (A) 32.5 %; MCH 28.7 pg (27.0-32.0); MCHC 33.6 g/dL (32.0-37.0); MCV 85.5 fL (80.0-97.0); Mean Platelet Volume 8.6 fL (9.5-12.2); Monocytes # (A) 0.43 10*3/uL (0.20-1.00); Monocytes % (A) 5.7 %; Neutrophils # (A) 4.42 10*3/uL (1.80-7.70); Neutrophils % (A) 58.6 %; Platelet Count 245 10*3/uL (140-440); RBC 4.91 10*6/uL (4.10-5.20); RDW 12.5 % (11.5-14.5); WBC 7.54 10*3/uL (4.50-10.00)
[2024-08-26] MEDS: ASPIRIN 81 MG PO STA (18:22)
[2024-08-26] MEDS: NITROGLYCERIN OINT 1 INCH/GM PACKET TOPICAL STA (18:23)
[2024-08-26 18:32] LABS: INR 0.9 (<1.2); Partial Thromboplastin Time 22.1 sec (22.0-30.0); Prothrombin Time 10.2 sec (10.0-12.5)
[2024-08-26 18:35] LABS: ALT 32 U/L (4-34); AST 41 U/L (14-36); African American GFR (CKD) >90 (>60 ml/min/1.73 sqM); Albumin 4.9 g/dL (3.5-5.0); Alkaline Phosphatase 124 U/L (38-126); Anion Gap 14 mmol/L; Blood Urea Nitrogen 18 mg/dL (7-17); Calcium 10.6 mg/dL (8.4-10.2); Carbon Dioxide 26 mmol/L (22-30); Chloride 94 mmol/L (98-107); Glucose 425 mg/dL (74-99); Magnesium 1.6 mg/dL (1.6-2.3); Non-African American GFR(CKD) 85 (>60 ml/min/1.73 sqM); Potassium 3.6 mmol/L (3.5-5.1); Sodium 134 mmol/L (137-145); Total Bilirubin 0.7 mg/dL (0.2-1.3); Total Protein 7.9 g/dL (6.3-8.2)
[2024-08-26 18:44] LABS: NT-Pro-B-Type Natriuretic Pept 68 pg/mL
--- NOTE | 2024-08-26 18:50 | XR ---
EXAMINATION TYPE: XR chest 2V DATE OF EXAM: 08/26/2024 6:34 PM COMPARISON: Chest radiographs from 06/02/2021. CLINICAL INDICATION: Female, 64 years old with history of Chest Pain; [facility] TECHNIQUE: XR chest 2V Frontal and lateral views of the chest. FINDINGS: Lungs/Pleura: There is no evidence of pleural effusion, focal consolidation, or pneumothorax. Pulmonary vascularity: Unremarkable. Heart/mediastinum: Cardiomediastinal silhouette is unremarkable. Musculoskeletal: No acute osseous pathology. Other findings: None IMPRESSION: No acute cardiopulmonary disease/process. [facility], , 08/26/2024 6:48 PM
[2024-08-26] MEDS ORDERED: NITROGLYCERIN SL TABS 0.4 MG TAB SUBLINGUAL PRN (19:13)
[2024-08-26] MEDS: INSULIN REGULAR 100 UNIT/ML VIAL (IM/SQ) SQ ONE (19:46)
[2024-08-26] MEDS ORDERED: MAG HYDROX/AL HYDROX/SIMETH 30 ML CUP PO PRN (20:30)
[2024-08-26] MEDS ORDERED: DEXTROSE 50% SYRINGE 50 ML IVP PRN ×2 (20:32)
[2024-08-26] MEDS: VENLAFAXINE HCL ER 75 MG CAP PO SCH (21:05)
[2024-08-26] MEDS: ATORVASTATIN 10 MG TAB PO SCH (21:05)
[2024-08-26 21:42] LABS: Glucose,Whole Blood 304 mg/dL (70-110)
[2024-08-26] MEDS: INSULIN LISPRO (HumaLOG) 100 UNIT/ML 10 mL VL SQ SCH (22:12)
[2024-08-26] MEDS: MORPHINE SULFATE IR 15 MG TABLET PO SCH (22:12)
[2024-08-26] MEDS: ONDANSETRON 4 MG/2 ML VIAL IVP PRN (22:15)
--- NOTE | 2024-08-26 23:15 | P.HPIM ---
History of Present Illness H&P Date: 08/26/24 History of present illness; Patient is a 64-year-old female with history of cervical spine decompression and fusion present with injury to vagus nerve presents with chest discomfort. Patient states that for the last few days she has increased chest tightness beginning on left side of her chest and travels to right. She states that at times she was diaphoretic and nauseous with increased fatigue. She also attest to radiation to her jaw bilaterally with ongoing headache. Symptoms seem to have progressed, and are typically intermittently present at baseline. Currently her symptoms persist and are intermittent. 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 Does attest to having neurogenic bladder with intermittent dysuria. She is denying other symptoms at this time. Spoke with the ER physician, patient admission was accepted by internal medicine service for treatment. REVIEW OF SYSTEMS: Pertinent positives and negatives noted in HPI. PHYSICAL EXAMINATION: VITAL SIGNS: Reviewed GENERAL: Resting comfortably in bed. Obese. With nasal cannula. EYES: PERRL, no scleral injection or icterus. HENT: Normocephalic, atraumatic, hearing grossly intact, moist mucous membranes. NECK: No tracheal deviation, full range of motion. CARDIOVASCULAR: S1 and S2 present. No murmurs, rubs, or gallops. PULMONARY: Chest is clear to auscultation, no wheezing, rhonchi, or crackles. ABDOMEN: Soft, nontender, nondistended. No palpable organomegaly. NEUROLOGICAL: Alert and oriented. Gross neurological examination with no apparent focal deficits. MUSCULOSKELETAL: No apparent joint swelling and deformities. EXTREMITIES: No apparent cyanosis, clubbing. No pedal edema. SKIN: No apparent rashes. ER FINDINGS: Labs significant for sodium 134, BUN 18, creatinine 0.76, glucose 425, calcium 10.6, AST 41, troponin negative, proBNP 68 EKG independently interpreted showed sinus rhythm heart rate of 96, QTc 419, no ST segment elevation or depression seen, no T-wave inversions seen. Chest x-ray done independently interpreted showed no acute cardiopulmonary process. Assessment and Plan: In summary, Patient is a 64-year-old female with history of cervical spine decompression and fusion present with injury to vagus nerve presents with chest discomfort. #Atypical Chest pain #History of spinal decompression and fusion EKG sinus rhythm no ST elevations or depressions Chest x-ray no acute cardiopulmonary process -trend troponins, initial negative continue cardiac monitoring - Ordered TSH with reflex T4, HbA1c, Lipid panel - given aspirin 325, start 81mg qd Resume home statin - Cardiology consulted Labs significant for sodium 134, BUN 18, creatinine 0.76, glucose 425, calcium 10.6, AST 41, troponin negative, proBNP 68 #Neurogenic bladder Intermittent dysuria at baseline UA ordered #Uncontrolled hyperglycemia Glucose 425 Begin insulin medium dose sliding scale, Accu-Cheks ACHS A1c ordered Chronic Medical Conditions: Hypertension Hyperlipidemia Hypothyroidism Depression anxiety GERD Chronic pain Resume home medications DVT ppx: Subq Lovenox 40 meq daily Code status: No code F: P.o. E: Replete as needed N: Heart healthy diet Anticipated discharge place: Home Anticipated discharge time: 1 to 2 days Skip Garcia MD Internal Medicine Resident, PGY1 Dictation was produced using [employer] dictation software. Please excuse any grammatical, word or spelling errors. I have seen and evaluated the patient today. I Discussed the case with the resident and agree with the resident's findings I edited the assessment and p jay jay as necessary as documented in the resident's note. Past Medical History Past Medical History: GERD/Reflux, Hyperlipidemia, Hypertension, Musculoskeletal Disorder Additional Past Medical History / Comment(s): Cervical disc disease status post C4-C5 and C5-C6 corpectomy decompression and fusion that was done [address] Rodriges. Central sleep apnea on Servo ventilation History of Any Multi-Drug Resistant Organisms: None Reported Past Surgical History: Section, Cholecystectomy Additional Past Surgical History / Comment(s): Cervical decompression /stabilization. cor pectomy c4-c6 with donor bone plates and screws Past Anesthesia/Blood Transfusion Reactions: No Reported Reaction Past Psychological History: No Psychological Hx Reported Smoking Status: Former smoker Past Alcohol Use History: None Reported Past Drug Use History: None Reported - Past Family History Father Additional Family Medical History / Comment(s): Father at age 60 from lung cancer. Mother Additional Family Medical History / Comment(s): Mother at age 66 from cerebral aneurysm. Sister(s) Family Medical History: Cancer Additional Family Medical History / Comment(s): Patient has 2 sisters and one has had breast cancer and one has had peritoneal cancer at age 14. She has one brother with no major medical problems. Patient has one daughter with no major medical problems. Medications and Allergies Home Medications Medication Instructions Recorded Confirmed Type Venlafaxine HCl [Effexor XR] 150 mg PO HS 06/02/21 08/26/24 History Verapamil HCl [Verapamil ER] 240 mg PO DAILY 06/02/21 08/26/24 History acetaZOLAMIDE [acetaZOLAMIDE ER] 500 mg PO DAILY 06/02/21 08/26/24 History armodafiniL [Armodafinil] 200 mg PO DAILY 06/02/21 08/26/24 History Cholecalciferol (Vitamin D3) 1,250 mcg PO WE 08/26/24 08/26/24 History [Vitamin D3 (1250 Mcg = 50,000 Iu)] Grass Fed Beef Supplement 2 cap PO BID 08/26/24 08/26/24 History Levothyroxine Sodium [Synthroid] 50 mcg PO DAILY 08/26/24 08/26/24 History Loratadine [Claritin] 10 mg PO DAILY 08/26/24 08/26/24 History Morphine Sulfate Ir [Msir] 30 mg PO TID@0000,0900,2200 08/26/24 08/26/24 History Rosuvastatin Calcium 5 mg PO HS 08/26/24 08/26/24 History Zinc Gluconate [Zinc] 50 mg PO DAILY 08/26/24 08/26/24 History Allergies Allergy/AdvReac Type Severity Reaction Status Date / Time alprazolam [From Xanax] Allergy INSOMNIA Verified 08/26/24 19:32 hydromorphone HCl Allergy Nausea Verified 08/26/24 19:32 [From Dilaudid] sumatriptan [From Imitrex] Allergy Chest Pain Verified 08/26/24 19:32 sumatriptan succinate Allergy Chest Pain Verified 08/26/24 19:32 [From Imitrex] tapentadol HCl [From Nucynta] Allergy Chest Pain Verified 08/26/24 19:32 atenolol AdvReac Unknown Verified 08/26/24 19:32 Physical Exam Vitals: Vital Signs Temp Pulse Resp BP Pulse Ox 08/26/24 18:20 99 22 184/78 95 08/26/24 17:25 98.0 F 103 H 22 178/102 98 Intake and Output 08/26/24 08/26/24 08/26/24 06:59 14:59 22:59 Other: Weight 83.915 kg Results CBC & Chem 7: 08/26/24 18:05 08/26/24 18:05 Labs: Abnormal Lab Results - Last 24 Hours (Table) 08/26/24 08/26/24 Range/Units 18:05 18:05 MPV 8.6 L (9.5-12.2) fL Sodium 134 L (137-145) mmol/L Chloride 94 L (98-107) mmol/L BUN 18 H (7-17) mg/dL Glucose 425 H (74-99) mg/dL Calcium 10.6 H (8.4-10.2) mg/dL AST 41 H (14-36) U/L
[2024-08-26] MEDS: NITROGLYCERIN OINT 1 INCH/GM PACKET TOPICAL SCH (23:27)
[2024-08-26 23:51] LABS: Appearance,Urine Clear (Clear); Bilirubin,Urine Negative (Negative); Blood,Urine Negative (Negative); Color,Urine Colorless; Glucose,Urine (UA) 4+ (Negative); Ketones,Urine Negative (Negative); Leukocyte Esterase,Urine Negative (Negative); Nitrite,Urine Negative (Negative); Protein,Urine Negative (Negative); Specific Gravity,Urine 1.034 (1.001-1.035); Urobilinogen,Urine <2.0 mg/dL (<2.0)
[2024-08-27 05:55] LABS: Glucose,Whole Blood 223 mg/dL (70-110)
[2024-08-27] MEDS: PANTOPRAZOLE 40 MG TABLET PO SCH (06:17)
[2024-08-27 07:53] VITALS: BP 120/69; PULSE 84; RESP 16; TEMP 97.5
[2024-08-27 08:40] LABS: BUN/Creat Ratio 23.75 Ratio (12.00-20.00); Carbon Dioxide 25.7 mmol/L (21.6-31.8); Chloride 100 mmol/L (96-109); Chol/HDL Ratio 2.93 Ratio; Glucose 205 mg/dL (70-110); Potassium 4.4 mmol/L (3.5-5.5); Sodium 139 mmol/L (135-145)
[2024-08-27 08:41] LABS: ALT 29 U/L (8-44); AST 33 U/L (13-35); Albumin 4.3 g/dL (3.8-4.9); Albumin/Globulin Ratio 1.59 Ratio (1.60-3.17); Alkaline Phosphatase 99 U/L (41-126); Calcium 9.6 mg/dL (8.7-10.3); Globulin 2.7 g/dL (1.6-3.3); Total Bilirubin 0.4 mg/dL (0.3-1.2)
[2024-08-27] MEDS: ENOXAPARIN 40 MG/0.4 ML SYRINGE SQ SCH (08:44)
[2024-08-27] MEDS: LEVOTHYROXINE 50 MCG TAB PO SCH (08:44)
[2024-08-27] MEDS: LORATADINE 10 MG TAB PO SCH (08:44)
[2024-08-27] MEDS: VERAPAMIL SR 240 MG TABLET.ER PO SCH (08:44)
[2024-08-27] MEDS: ZINC SULFATE 220 MG CAP PO SCH (08:44)
[2024-08-27] MEDS: ASPIRIN 81 MG PO SCH (08:44)
[2024-08-27] MEDS: ARMODAFINIL 200 MG PO SCH (08:45)
[2024-08-27] MEDS: acetaZOLAMIDE 250 MG TAB PO SCH (08:45)
[2024-08-27] MEDS ORDERED: DOBUTamine DRIP for NUC MED 500 MG in DEXTROSE/WATER 1 250ML.BAG IV PRN (08:53)
[2024-08-27] MEDS ORDERED: REGADENOSON 0.4 MG/5 ML SYRINGE IV PRN (08:55)
[2024-08-27] MEDS ORDERED: CAFFEINE CITRATE 60 MG/3 ML VIAL IV PRN (08:55)
[2024-08-27] MEDS ORDERED: AMINOPHYLLINE 500 MG/20 ML VIAL IV PRN (08:55)
[2024-08-27] MEDS ORDERED: ASPIRIN 325 MG TAB PO SCH (09:00)
--- NOTE | 2024-08-27 10:20 | P.CRDCN ---
History of Present Illness History of present illness: HISTORY OF PRESENTING ILLNESS This is a pleasant 64-year-old female past medical history significant for hypertension, dyslipidemia, diabetes mellitus and degenerative disc disease status post cervical spine surgery. She previously follow in the office with Dr. Sanchez, last visit 2022. We have been asked to see in consultation for chest pain. She states for the past 3 days she has been inappropriately diaphoretic. No specific exertional chest pain or pressure but notices a discomfort in both of her shoulders. She has previously had cervical spine surgery which apparently had quite a few complications and has deemed her very functionally inept. She does not get much exercise or do much physical activity. She has chronic stable shortness of breath due to her functional capacity and has had no change in that recently. EKG revealed sinus rhythm with nonspecific ST and T wave abnormalities noted. Chest x-ray is negative for any acute rosuvastatin 5 mg at bedtime and verapamil 240 mg daily. Cardiopulmonary process. Laboratory data reviewed, CBC unremarkable, D-dimer 0.23, sodium 139, potassium 4.4, creatinine 0.8, hemoglobin A1c 10, troponin negative x 3, NT proBNP 68, TSH 3.3 and LDL 80. Current daily cardiac medications include REVIEW OF SYSTEMS At the time of my exam: CONSTITUTIONAL: Denies fever or chills. CARDIOVASCULAR: Denies chest pain, shortness of breath, orthopnea, PND or palpitations. RESPIRATORY: Denies cough. GASTROINTESTINAL: Denies abdominal pain, diarrhea, constipation, nausea or vomiting. MUSCULOSKELETAL: Denies myalgias. NEUROLOGIC: Denies numbness, tingling, headache or weakness. ENDOCRINE: Denies fatigue, weight change, polydipsia or polyurina. GENITOURINARY: Denies burning, hematuria or urgency with micturation. HEMATOLOGIC: Denies history of anemia or bleeding. PHYSICAL EXAMINATION Blood pressure 120/69 heart rate 84 afebrile and maintaining oxygen saturation on nasal cannula. CONSTITUTIONAL: No apparent distress. HEENT: Head is normocephalic. Pupils are equal, round. Sclerae anicteric. Mucous membranes of the mouth are moist. No JVD. No carotid bruit. CHEST EXAMINATION: Lungs are clear to auscultation. No chest wall tenderness is noted on palpation or with deep breathing. HEART EXAMINATION: Regular rate and rhythm. S1, S2 heard. No murmurs, gallops or rub. ABDOMEN: Soft, nontender. EXTREMITIES: 2+ peripheral pulses, no lower extremity edema and no calf tenderness. NEUROLOGIC EXAMINATION: Patient is awake, alert and oriented x3. ASSESSMENT Chest pain, atypical Hypertension Dyslipidemia Diabetes mellitus, uncontrolled with A1c of 10 Poor functional capacity PLAN An acute coronary event has been ruled out. Obtain 2D echocardiogram and Doppler study to assess cardiac structure and function. We suggested she have a Lexiscan stress test however she declines. She will be discharged home today and can follow-up as an outpatient with Dr. Pastrana for outpatient stress testing. Aggressive glucose treatment for optimal A1c of less than 7 per the primary care team and outpatient PCP. Thank you kindly for this consultation. Nurse Practitioner note has been reviewed, I agree with a documented findings and plan of care. Patient was seen and examined. Past Medical History Past Medical History: GERD/Reflux, Hyperlipidemia, Hypertension, Musculoskeletal Disorder Additional Past Medical History / Comment(s): Cervical disc disease status post C4-C5 and C5-C6 corpectomy decompression and fusion that was done [address] Rodriges. Central sleep apnea on Servo ventilation History of Any Multi-Drug Resistant Organisms: None Reported Past Surgical History: Section, Cholecystectomy Additional Past Surgical History / Comment(s): Cervical decompressi on/stabilization. cor pectomy c4-c6 with donor bone plates and screws Past Anesthesia/Blood Transfusion Reactions: No Reported Reaction Past Psychological History: No Psychological Hx Reported Smoking Status: Former smoker Past Alcohol Use History: None Reported Additional Past Alcohol Use History / Comment(s): Patient was smoker half a pack per day and quit in 2000. She denies any alcohol use. She denies any medical marijuana, marijuana, street drug use. Past Drug Use History: None Reported - Past Family History Father Additional Family Medical History / Comment(s): Father at age 60 from lung cancer. Mother Additional Family Medical History / Comment(s): Mother at age 66 from cerebral aneurysm. Sister(s) Family Medical History: Cancer Additional Family Medical History / Comment(s): Patient has 2 sisters and one has had breast cancer and one has had peritoneal cancer at age 14. She has one brother with no major medical problems. Patient has one daughter with no major medical problems. Medications and Allergies Home Medications Medication Instructions Recorded Confirmed Type Venlafaxine HCl [Effexor XR] 150 mg PO HS 06/02/21 08/26/24 History Verapamil HCl [Verapamil ER] 240 mg PO DAILY 06/02/21 08/26/24 History acetaZOLAMIDE [acetaZOLAMIDE ER] 500 mg PO DAILY 06/02/21 08/26/24 History armodafiniL [Armodafinil] 200 mg PO DAILY 06/02/21 08/26/24 History Cholecalciferol (Vitamin D3) 1,250 mcg PO WE 08/26/24 08/26/24 History [Vitamin D3 (1250 Mcg = 50,000 Iu)] Grass Fed Beef Supplement 2 cap PO BID 08/26/24 08/26/24 History Levothyroxine Sodium [Synthroid] 50 mcg PO DAILY 08/26/24 08/26/24 History Loratadine [Claritin] 10 mg PO DAILY 08/26/24 08/26/24 History Morphine Sulfate Ir [Msir] 30 mg PO TID@0000,0900,2200 08/26/24 08/26/24 History Rosuvastatin Calcium 5 mg PO HS 08/26/24 08/26/24 History Zinc Gluconate [Zinc] 50 mg PO DAILY 08/26/24 08/26/24 History Allergies Allergy/AdvReac Type Severity Reaction Status Date / Time alprazolam [From Xanax] Allergy INSOMNIA Verified 08/26/24 19:32 hydromorphone HCl Allergy Nausea Verified 08/26/24 19:32 [From Dilaudid] sumatriptan [From Imitrex] Allergy Chest Pain Verified 08/26/24 19:32 sumatriptan succinate Allergy Chest Pain Verified 08/26/24 19:32 [From Imitrex] tapentadol HCl [From Nucynta] Allergy Chest Pain Verified 08/26/24 19:32 atenolol AdvReac Unknown Verified 08/26/24 19:32 Physical Exam Vitals: Vital Signs Temp Pulse Pulse Resp BP BP Pulse Ox 08/27/24 08:44 16 08/27/24 07:30 97.5 F L 84 16 120/69 94 L 08/27/24 02:00 102 H 08/27/24 01:55 98.3 F 102 H 18 142/72 96 08/27/24 00:46 93 18 141/67 95 08/26/24 18:20 99 22 184/78 95 08/26/24 17:25 98.0 F 103 H 22 178/102 98 Intake and Output 08/26/24 08/27/24 08/27/24 22:59 06:59 14:59 Other: Voiding Method Toilet Toilet # Voids 1 Weight 83.915 kg 83.915 kg Results 08/26/24 18:05 08/27/24 04:30 Cardiac Enzymes 08/26/24 08/26/24 08/26/24 Range/Units 18:05 18:05 21:43 AST 41 H (14-36) U/L Troponin I <0.012 0.026 (0.000-0.034) ng/mL 08/27/24 08/27/24 Range/Units 01:18 04:30 AST 33 (14-36) U/L Troponin I <0.012 (0.000-0.034) ng/mL Coagulation 08/26/24 Range/Units 18:05 PT 10.2 (10.0-12.5) sec APTT 22.1 (22.0-30.0) sec Lipids 08/27/24 Range/Units 04:30 Triglycerides 153.00 H (0.00-149.00) mg/dL Cholesterol 168.00 (0.00-200.00) mg/dL HDL Cholesterol 57.40 (40.00-60.00) mg/dL Cholesterol/HDL Ratio 2.93 Ratio CBC 08/26/24 Range/Units 18:05 WBC 7.54 (4.50-10.00) 10*3/uL RBC 4.91 (4.10-5.20) 10*6/uL Hgb 14.1 (12.0-15.0) g/dL Hct 42.0 (37.2-46.3) % Plt Count 245 (140-440) 10*3/uL Comprehensive Metabolic Panel 08/26/24 08/27/24 Range/Units 18:05 04:30 Sodium 134 L 139 (137-145) mmol/L Potassium 3.6 4.4 (3.5-5.1) mmol/L Chloride 94 L 100 (98-107) mmol/L Carbon Dioxide 26 25.7 (22-30) mmol/L BUN 18 H 19.0 (7-17) mg/dL Creatinine 0.76 0.8 (0.52-1.04) mg/dL Glucose 425 H 205 H (74-99) mg/dL Calcium 10.6 H 9.6 (8.4-10.2) mg/dL AST 41 H 33 (14-36) U/L ALT 32 29 (4-34) U/L Alkaline Phosphatase 124 99 (38-126) U/L Total Protein 7.9 7.0 (6.3-8.2) g/dL Albumin 4.9 4.3 (3.5-5.0) g/dL Current Medications Generic Name Dose Route Start Last Admin Trade Name Freq PRN Reason Stop Dose Admin Acetazolamide 500 mg 08/27/24 09:00 08/27/24 08:45 Acetazolamide 250 Mg Tab PO 500 mg DAILY CLAUDETTE Administration Al Hydroxide/Mg Hydroxide 30 ml 08/26/24 20:30 Mag Hydrox/Al Hydrox/Simeth 30 Ml Cup PO Q4HR PRN GI Upset Aminophylline 100 mg 08/27/24 08:55 Aminophylline 500 Mg/20 Ml Vial IV 08/27/24 12:55 ONCE PRN Patient Response Aspirin 81 mg 08/27/24 09:00 08/27/24 08:44 Aspirin 81 Mg PO 81 mg DAILY CLAUDETTE Administration Atorvastatin Calcium 10 mg 08/26/24 21:00 08/26/24 21:05 Atorvastatin 10 Mg Tab PO 10 mg HS CLAUDETTE Administration Caffeine Citrate 60 mg 08/27/24 08:55 Caffeine Citrate 60 Mg/3 Ml Vial IV 08/27/24 12:55 ONCE PRN Patient Response Dextrose/Water 50 ml 08/26/24 20:32 Dextrose 50% Syringe 50 Ml IVP PER PROTOCOL PRN Hypoglycemia Protocol Dextrose/Water 25 ml 08/26/24 20:32 Dextrose 50% Syringe 50 Ml IVP PER PROTOCOL PRN Hypoglycemia Protocol Enoxaparin Sodium 40 mg 08/27/24 09:00 08/27/24 08:44 Enoxaparin 40 Mg/0.4 Ml Syringe SQ 40 mg DAILY CLAUDETTE Administration Insulin Human Lispro 0 unit 08/26/24 21:00 08/27/24 06:17 Insulin Lispro (Humalog) 100 Unit/Ml 10 Ml Vl SQ 4 unit ACHS CLAUDETTE Administration Protocol Levothyroxine Sodium 50 mcg 08/27/24 09:00 08/27/24 08:44 Levothyroxine 50 Mcg Tab PO 50 mcg DAILY CLAUDETTE Administration Loratadine 10 mg 08/27/24 09:00 08/27/24 08:44 Loratadine 10 Mg Tab PO 10 mg DAILY CLAUDETTE Administration Morphine Sulfate 30 mg 08/26/24 22:00 08/27/24 08:59 Morphine Sulfate Ir 15 Mg Tablet PO 30 mg TID CLAUDETTE Administration Nitroglycerin 0.4 mg 08/26/24 19:13 Nitroglycerin Sl Tabs 0.4 Mg Tab SUBLINGUAL Q5M PRN Chest Pain Nitroglycerin 0.5 inch 08/27/24 00:00 08/27/24 05:58 Nitroglycerin Oint 1 Inch/Gm Packet TOPICAL Not Given Q6HR CLAUDETTE Non-Formulary Medication 200 mg 08/27/24 09:00 08/27/24 08:45 Armodafinil [Armodafinil] PO Not Given DAILY CLAUDETTE Ondansetron HCl 4 mg 08/26/24 20:19 08/27/24 06:16 Ondansetron 4 Mg/2 Ml Vial IVP 4 mg Q6H PRN Administration Nausea Pantoprazole Sodium 40 mg 08/27/24 07:30 08/27/24 06:17 Pantoprazole 40 Mg Tablet PO 40 mg AC-[id number] CLAUDETTE Administration Regadenoson 0.4 mg 08/27/24 08:55 Regadenoson 0.4 Mg/5 Ml Syringe IV 08/27/24 12:55 ONCE PRN Per Protocol Venlafaxine HCl 150 mg 08/26/24 21:00 08/26/24 21:05 Venlafaxine Hcl Er 75 Mg Cap PO 150 mg HS CLAUDETTE Administration Verapamil HCl 240 mg 08/27/24 09:00 08/27/24 08:44 Verapamil Sr 240 Mg Tablet.Er PO 240 mg DAILY CLAUDETTE Administration Zinc Sulfate 220 mg 08/27/24 09:00 08/27/24 08:44 Zinc Sulfate 220 Mg Cap PO 220 mg DAILY CLAUDETTE Administration Intake and Output 08/26/24 08/27/24 08/27/24 22:59 06:59 14:59 Other: Voiding Method Toilet Toilet # Voids 1 Weight 83.915 kg 83.915 kg 08/26/24 18:05 08/27/24 04:30
--- NOTE | 2024-08-27 11:27 | CA ---
Transthoracic Echo Report Name: Joy Adhikari Age: 64 Gender: F : 1960 Exam Date: 08/27/2024 10:15 Exam Location: [place] [facility] Ht (in): 62 Wt (lb): 185 Ordering Physician: Lilliana Pickard Attending/Referring Phys: [id number], [facility] Yudith Chinchilla, ANETTE Procedure CPT: Indications: sob Cardiac Hx: Technical Quality: Fair Contrast 1: Total Dose (mL): Contrast 2: Total Dose (mL): MEASUREMENTS (Male / Female) Normal Values 2D ECHO LV Diastolic Diameter PLAX 4.3 cm 4.2 - 5.9 / 3.9 - 5.3 cm LV Systolic Diameter PLAX 3.5 cm IVS Diastolic Thickness 1.2 cm 0.6 - 1.0 / 0.6 - 0.9 cm LVPW Diastolic Thickness 1.0 cm 0.6 - 1.0 / 0.6 - 0.9 cm LV Relative Wall Thickness 0.5 RV Internal Dim ED PLAX 3.8 cm LVOT Diameter 2.0 cm LV Diastolic Volume MOD BP 71.4 cm??? 67 - 155 / 56 - 104 cm??? LV Systolic Volume MOD BP 25.0 cm??? 22 - 58 / 19 - 49 cm??? LV Ejection Fraction MOD BP 65.0 % >= 55 % LV Cardiac Index MOD BP 2306.6 cm???/min???m??? LV Diastolic Volume MOD 4C 64.9 cm??? LV Systolic Volume MOD 4C 20.8 cm??? LV Ejection Fraction MOD 4C 68.0 % LV Cardiac Index MOD 4C 2190.6 cm???/min???m??? LV Diastolic Length 4C 6.3 cm LV Systolic Length 4C 4.7 cm LV Diastolic Volume MOD 2C 74.3 cm??? LV Systolic Volume MOD 2C 30.3 cm??? LV Ejection Fraction MOD 2C 59.2 % LV Cardiac Index MOD 2C 2183.6 cm???/min???m??? LV Diastolic Length 2C 5.9 cm LV Systolic Length 2C 4.8 cm LA Volume 39.1 cm??? 18 - 58 / 22 - 52 cm??? LA Volume Index 20.0 cm???/m??? 16 - 28 cm???/m??? M-MODE Aortic Root Diameter MM 2.3 cm LA Systolic Diameter MM 3.6 cm LA Ao Ratio MM 1.6 AV Cusp Separation MM 1.7 cm DOPPLER AV Peak Velocity 127.5 cm/s AV Peak Gradient 6.5 mmHg AV Mean Velocity 86.3 cm/s AV Mean Gradient 3.3 mmHg AV Velocity Time Integral 19.1 cm LVOT Peak Velocity 104.5 cm/s LVOT Peak Gradient 4.4 mmHg LVOT Velocity Time Integral 15.6 cm LVOT Stroke Volume 48.5 cm??? LVOT Stroke Volume Index 26.2 ml/m??? LVOT Cardiac Index 2410.0 cm???/min???m??? AV Area Cont Eq vti 2.5 cm??? AV Area Cont Eq pk 2.5 cm??? MV Area PHT 7.8 cm??? Mitral E Point Velocity 44.9 cm/s Mitral A Point Velocity 71.8 cm/s Mitral E to A Ratio 0.6 MV Deceleration Time 97.1 ms PV Peak Velocity 101.5 cm/s PV Peak Gradient 4.1 mmHg FINDINGS Left Ventricle Left ventricular ejection fraction is estimated at 60-65%. Mildly increased septal wall thickness. Mildly increased posterior wall thickness. Normal left ventricular systolic function with no obvious regional wall motion abnormalities. Right Ventricle Normal right ventricular size and function. Right ventricular systolic pressure within normal limits. Right Atrium Normal right atrial size. Left Atrium Normal left atrial size. Mitral Valve Structurally normal mitral valve. Trace mitral regurgitation. No mitral stenosis. Aortic Valve Trileaflet aortic valve. No aortic stenosis. No aortic regurgitation. Tricuspid Valve Structurally normal tricuspid valve. Trace tricuspid regurgitation. No tricuspid stenosis. Pulmonic Valve Structurally normal pulmonic valve. Trace pulmonic regurgitation. No pulmonic stenosis. Pericardium No pericardial or pleural effusion. Aorta Normal size aortic root and proximal ascending aorta. CONCLUSIONS Normal LV size and systolic function. This is somewhat of a difficult study. No significant abnormality on the Doppler exam. No pericardial effusion. No significant pulmonary hypertension Previewed by: Dr. Jackie Garcia MD (Electronically Signed) Final Date: 27 Aug 2024 11:26
[2024-08-27 12:27] LABS: Glucose,Whole Blood 322 mg/dL (70-110)
--- NOTE | 2024-08-27 13:31 | P.DS ---
Providers Date of admission: 08/26/24 19:13 Expected date of discharge: 08/27/24 Attending physician: Blake Garcia MD Consults: 08/26/24 19:13 Consult Physician Urgent Consulting Provider: Mohsen Sanchez Consult Reason/Comments: cp Do you want consulting provider notified?: Yes Primary care physician: [facility] Hospital Course: Discharge Diagnosis: Chest pain, acute coronary event ruled out. Type II [id number] diabetes mellitus with hyperglycemia. Hemoglobin A1c 10.0%. Patient reports having a glucometer at home but states she has not been checking her blood glucose levels. She reports being on metformin but not documented in med rec. Being discharged home on metformin 500 mg twice daily along with glipizide 5 mg daily. She was encouraged to follow a heart healthy and carb consistent diet and check her blood glucose levels daily and document these findings and a daily log to bring with her to her next appointment with her PCP. If hemoglobin A1c does not show improvement patient will likely need to be transition to insulin. Pseudohyponatremia Hypercalcemia. Resolved with IV fluid hydration. Hypertension. Patient hypertensive on arrival. Vital signs upon arrival show blood pressure 120/69, heart rate 84, respiratory rate 16, temp 97.5 F, and SpO2 of 94% on 2 L. Patient to continue verapamil 240 mg daily. Hyperlipidemia. Patient to continue rosuvastatin 5 mg daily. Hypothyroidism. Patient to continue levothyroxine 50 mcg daily. Hospital Course: Patient is a pleasant 64-year-old female with a past medical history of hypertension, hyperlipidemia, hypothyroidism, GERD, type II diet-controlled diabetes mellitus, cervical disc disease status post surgeries with chronic neck pain, neurogenic bladder. She presented to the hospital on 08/26/2024 with a chief complaint of chest pain. Upon arrival to our facility, patient underwent evaluation in the emergency department. Vital signs upon arrival show blood pressure 178/102, heart rate 103, respiratory rate 22, temp 98.0 F, and SpO2 is 98% on room air. EKG completed and reviewed. CBC showing sinus rhythm at 96 bpm with nonspecific T wave/ST abnormality in inferior leads II, III, and aVF. Chest x-ray negative for acute cardiopulmonary process. Labs completed and reviewed. CBC unremarkable. Coagulation profile normal findings. D-dimer also negative at 0.23. BMP in 134, chloride 94, and slightly elevated anion gap of 18. Blood glucose was elevated at 405, calcium also elevated at 10.6, liver profile showing elevated AST of 41. Troponin was less than 0.012. Patient admitted under services with consultation to cardiology. Troponins were trended resulting at less than 0.012, 0.026, and less than 0.012. Cardiology evaluated recommending echocardiogram and stress test. Patient declined stress testing stating she is free from any chest pain or discomfort at this time and all symptoms have resolved. Patient states she will not complete inpatient and will follow-up outpatient to have completed. Cardiology stated if echocardiogram is clear patient cleared from their perspective for discharge. Profile showing elevated triglycerides of 153.00 otherwise unremarkable. Hemoglobin A1c resulting elevated at 10.0%. Echocardiogram was completed showing a preserved EF of 60 to 65% with no significant valvular or structural abnormalities reported. Patient cleared from cardiac perspective and is medically optimized for discharge at this time. Patient to follow-up outpatient with PCP in 1 to 2 days and with assembler convertible top in 1 week. Physical exam: Patient seen and examined at bedside. Vital signs reviewed and stable. General: Nontoxic, no distress and appears stated age. Derm: Skin warm and dry, normal coloration for ethnicity. Head: Atraumatic, normocephalic and symmetric. Eyes: EOM's intact, no lid lag, and anicteric sclera Mouth: no lip lesions, mucus membranes moist Cardiovascular: regular rate and rhythm with normal S1S2, no murmur, positive posterior tibial pulses bilaterally, and cap refill < 2 seconds. Lungs: Respirations even, regular, and unlabored on room air. Lungs CTA bilaterally, no rhonchi, no rales, no wheezing, and no accessory muscle usage. Abdominal: soft, nontender to palpation, no guarding, no appreciable organomegaly Ext: ROM intact. No gross muscle atrophy, no edema, no contractures Neuro: Speech clear, face symmetrical and CN II-XII grossly intact with no noted focal neuro deficits Psych: Alert and oriented to person, place, time, and situation. Appropriate and pleasant affect. A total of 33 minutes of time were spent preparing this complex discharge summary. Pt was discharged on 08/27/2024 at 1:23 PM. Patient was seen independently by Nurse Practitioner. This document was prepared using [employer] dictation software. Please allow for errors in damper maker while rare they do occur. Orville Murphy NP rendered care for this patient independently, reviewed the findings and plan as documented in the note above. I did not physically speak with or examine the patient on this date. Patient Condition at Discharge: Stable Plan - Discharge Summary Discharge Rx Participant: Yes New Discharge Prescriptions: New metFORMIN HCL [Glucophage] 500 mg PO BID 30 Days #60 tab glipiZIDE 5 mg PO DAILY 30 Days #30 tablet Continue armodafiniL [Armodafinil] 200 mg PO DAILY acetaZOLAMIDE [Diamox Sequels] 500 mg PO DAILY Verapamil HCl [Verapamil ER] 240 mg PO DAILY Venlafaxine HCl [Effexor XR] 150 mg PO HS Rosuvastatin Calcium 5 mg PO HS Cholecalciferol (Vitamin D3) [Vitamin D3 (1250 Mcg = 50,000 Iu)] 1,250 mcg PO WE Zinc Gluconate [Zinc] 50 mg PO DAILY Loratadine [Claritin] 10 mg PO DAILY Grass Fed Beef Supplement 2 cap PO BID Levothyroxine Sodium [Synthroid] 50 mcg PO DAILY Morphine Sulfate Ir [MSIR] 30 mg PO TID@0000,0900,2200 Discharge Medication List Venlafaxine HCl [Effexor XR] 150 mg PO HS 06/02/21 [History] Verapamil HCl [Verapamil ER] 240 mg PO DAILY 06/02/21 [History] acetaZOLAMIDE [Diamox Sequels] 500 mg PO DAILY 06/02/21 [History] armodafiniL [Armodafinil] 200 mg PO DAILY 06/02/21 [History] Cholecalciferol (Vitamin D3) [Vitamin D3 (1250 Mcg = 50,000 Iu)] 1,250 mcg PO WE 08/26/24 [History] Grass Fed Beef Supplement 2 cap PO BID 08/26/24 [History] Levothyroxine Sodium [Synthroid] 50 mcg PO DAILY 08/26/24 [History] Loratadine [Claritin] 10 mg PO DAILY 08/26/24 [History] Morphine Sulfate Ir [MSIR] 30 mg PO TID@0000,0900,2200 08/26/24 [History] Rosuvastatin Calcium 5 mg PO HS 08/26/24 [History] Zinc Gluconate [Zinc] 50 mg PO DAILY 08/26/24 [History] glipiZIDE 5 mg PO DAILY 30 Days #30 tablet 08/27/24 [Rx] metFORMIN HCL [Glucophage] 500 mg PO BID 30 Days #60 tab 08/27/24 [Rx] Follow up Appointment(s)/Referral(s): Mohsen Sanchez MD [STAFF PHYSICIAN] - 1 Week Fernando Guerrero DO [Primary Care Provider] - 1-2 days Patient Instructions/Handouts: Chest Pain (DC) Activity/Diet/Wound Care/Special Instructions: Activity: As tolerated. Take breaks as needed. Diet: Heart healthy and carb consistent diet. Avoid salts, or foods with hidden salts such as canned or boxed foods and frozen dinners. Extra salt makes your heart work harder and traps the fluid in your body for longer. Special Instructions: Take all of your medications as directed and remember to keep all of your doctor's appointments and follow-up as needed. Hemoglobin A1c is very elevated at 10% with like to see goal of less than 6%. You have been started on metformin 500 mg twice daily and glipizide 5 mg daily. Reported having a glucometer at home please be sure to check your blood glucose levels daily and document these findings and a daily log to bring with you to your next doctor's appointment. Thank you for allowing us to participate in your care, it was truly a pleasure having you for our patient!!! Discharge Disposition: HOME SELF-CARE
[2024-08-27 14:24] LABS: Glucose,Whole Blood 315 mg/dL (70-110)
== END 2024-08-27 15:30 | disposition home or self-care (01) ==
LOC: EC 17:19 → 6NMEDSUR 19:13
PROVIDERS: ADMIT Internal Medicine; ATTEND Internal Medicine
DX: R07.89 Other chest pain (principal); E11.65 Type 2 diabetes mellitus with hyperglycemia; E78.1 Pure hyperglyceridemia; E83.52 Hypercalcemia; R74.01 Elevation of levels of liver transaminase levels; E03.9 Hypothyroidism, unspecified; F32.A Depression, unspecified; F41.9 Anxiety disorder, unspecified; I10 Essential (primary) hypertension; K21.9 Gastro-esophageal reflux disease without esophagitis; G89.29 Other chronic pain; M54.2 Cervicalgia; G47.31 Primary central sleep apnea; Z79.891 Long term (current) use of opiate analgesic; Z79.84 Long term (current) use of oral hypoglycemic drugs; Z79.890 Hormone replacement therapy; Z79.899 Other long term (current) drug therapy; Z87.891 Personal history of nicotine dependence; Z88.5 Allergy status to narcotic agent; Z88.8 Allergy status to other drugs, medicaments and biological substances
CPT/HCPCS: 96376; 96374; 99285; 36415; 93005; 93306; 85379; 83880; 80061; 80053 ×2; 84443; 83735; 84484 ×2; 85025; 85610; 85730; 81003; 83036; 71046; G0378 ×2; J2405 ×2; J1650; J2785